=== PATIENT | female | born 1965 | race Caucasian/White ===

== ENCOUNTER 2016-07-27 14:42 | Outpatient (CLI) | payer BC ==
[2016-07-27] MEDS ORDERED: SODIUM CHLORIDE 0.9% 2,000 ML IV ONE (16:25)
[2016-07-27 16:33] VITALS: BMI 23.4
[2016-07-27 19:45] VITALS: BP 107/67; PULSE 85; RESP 18; TEMP 97
--- NOTE | 2016-08-14 17:16 | P.PN ---
Progress Note - Text DATE OF SERVICE: 07/27/2016 CHIEF COMPLAINT: Follow-up revision of gastric bypass. HISTORY OF PRESENT ILLNESS: Sherrie Lira is a 51-year-old female who is status post revision of her gastric bypass on 06/20/2016. She is over a month out. She had a gastrogastric fistula including severe gastroesophageal reflux disease and epigastric abdominal pain, which is now completely resolved. Her initial highest weight was 310 pounds for a 5-foot , 6-1/2-inch frame. [place] body weight is 154 pounds. Today she comes in weighing 167 pounds. Her prior weight before surgery was 164 pounds. She has lost another 16 pounds in one month. Percent excess weight loss is 104%. She has lost 163 pounds. Body mass index is reduced from 49.4 down to 23.5. Overall she reports new onset dizziness including blood pressure in the 80s. She reports poor oral intake. PHYSICAL EXAM: VITAL SIGNS: 98.5, 93, 89/60, 18; 5 feet 6-1/2 inches, 147 pounds, body mass index 23.5. GENERAL: Well-developed female in no acute distress. ABDOMEN: Soft, nontender. All incisions granulated. MUSCULOSKELETAL: No clubbing, cyanosis, or edema. HEENT: No sclera icterus. Extraocular movements grossly intact. Moist buccal mucosa. Head is atraumatic, normocephalic. Hears conversational speech. No nasal drainage. NECK: Supple without lymphadenopathy. No JV distention. CHEST: Non-labored respirations and equal bilateral excursions. CARDIOVASCULAR: Regular rate and rhythm. Palpable 2+ radial pulses. NEUROLOGIC: No focal or lateralizing signs. PSYCH: Appropriate affect. Alert and oriented to person, place and time. ASSESSMENT: 1. History of gastrogastric fistula. 2. History of Luciano-en-Y gastric bypass with complication, now resolved. 3. Body mass index reduced from 49.4 down to 23.5. 4. Correction of gastrogastric fistula. 5. Chronic lower back pain. 6. Chronic iron deficiency anemia. 7. History of chronic anticoagulant therapy. 8. History of morbid obesity, now resolved. 9. Prior history of elevated liver enzymes. 10. History of blood clotting disorder. 11. Protein malnutrition secondary to inadequate protein intake. 12. Dietary surveillance and counseling. 13. Epigastric abdominal pain. 14. Dizziness. 15. Hypotension. 16. Adverse reaction from medications. PLAN: 1. On review of her vital signs including clinical history of poor oral intake, I have recommended 2 L IV fluid bolus at least on 2 separate occasions. On repeat, her blood pressure did improve to 107/67. 2. Recommend no return to work until resolution of all nausea including dehydration and dizziness. 3. As she has new onset dizziness, recommend review of her medications especially from her Topamax and Prozac. 4. Recommend followup in approximately one week.
== END 2016-07-27 19:30 | disposition home or self-care (01) ==
LOC: BARWHC3 14:42
PROVIDERS: ATTEND Surgery Plastic and Reconstructive Surgery
DX: Z48.815 Encounter for surgical aftercare following surgery on the digestive system (principal); Z98.84 Bariatric surgery status; R55 Syncope and collapse; R42 Dizziness and giddiness; I10 Essential (primary) hypertension; T50.905A Adverse effect of unspecified drugs, medicaments and biological substances, initial encounter; Z68.23 Body mass index [BMI] 23.0-23.9, adult
CPT/HCPCS: 96360; 96361; 99211

== ENCOUNTER → 2016-08-08 | Outpatient (CLI) | payer BC ==
--- NOTE | 2016-08-08 12:26 | P.PN ---
Progress Note - Text To whom it may concern: Sherrie Lira is under my general surgery care. She may return to work without restrictions on 08/09/2016. Sincerely, Ansley Bustamante MD, FACS, FICS
[2016-08-08 12:50] VITALS: BP 126/69; PULSE 74; TEMP 98.3; BMI 23.1
[2016-08-08 13:27] LABS: CH 30.5; CHCM 32.8; HCT 44.7 % (34.0-46.0); HDW 2.38; HGB 14.4 gm/dL (11.4-16.0); MCH 30.1 pg (25.0-35.0); MCHC 32.3 g/dL (31.0-37.0); MCV 93.1 fL (80.0-100.0); Mean Platelet Volume 7.1; RDW 12.8 % (11.5-15.5)
[2016-08-08 13:30] LABS: INR 1.1 (<1.1); Partial Thromboplastin Time 23.9 sec (22.0-30.0); Prothrombin Time 11.2 sec (9.0-12.0)
[2016-08-08 13:50] LABS: ALT 72 U/L (9-52); AST 48 U/L (14-36); Alkaline Phosphatase 77 U/L (38-126); Anion Gap 11 mmol/L; Blood Urea Nitrogen 17 mg/dL (7-17); Calcium 9.2 mg/dL (8.4-10.2); Carbon Dioxide 24 mmol/L (22-30); Chloride 108 mmol/L (98-107); Cholesterol 154 mg/dL (<200); Glucose 86 mg/dL (74-99); HDL Cholesterol 67 mg/dL (40-60); Iron 71 ug/dL (37-170); Magnesium 2.1 mg/dL (1.6-2.3); Non-African American GFR(MDRD) >60 (>60 ml/min/1.73 sqM); Phosphorous 4.2 mg/dL (2.5-4.5); Potassium 4.2 mmol/L (3.5-5.1); Sodium 143 mmol/L (137-145); Total Bilirubin 0.4 mg/dL (0.2-1.3); Triglycerides 82 mg/dL (<150)
[2016-08-08 14:01] LABS: % Iron Saturation 31.4 % (20-50); Prealbumin 25 mg/dL (18-36); Total Iron Binding Capacity 226 ug/dL (265-497)
[2016-08-08 14:52] LABS: Vitamin B12 857 pg/mL (239-931)
[2016-08-08 23:51] LABS: Hemoglobin A1C 5.2 % (4.2-6.1)
--- NOTE | 2016-08-14 21:18 | P.PN ---
Progress Note - Text DATE OF SERVICE: 08/08/2016 CHIEF COMPLAINT: Status post revision of gastrojejunal anastomosis and gastrogastric fistula. HISTORY OF PRESENT ILLNESS: Sherrie Lira is a 51-year-old female who is status post revision of a gastrogastric fistula of her gastric bypass on 06/20/2016. She is now over 6 weeks out. Approximately 2 to 3 weeks ago [facility] with excruciating epigastric abdominal pain including intractable nausea, vomiting, diarrhea. She believes this is secondary to Carafate. After discontinuing her Carafate for the last 4 days her abdominal pain is resolved. She is tolerating diet. No reports of recurrent epigastric abdominal pain. No reports of gastroesophageal reflux disease. Overall, she has increased energy. She is tolerating her protein diet. Again no reports of fevers or chills. She has lost another 2 pounds in 3 weeks. BMI reduced from 49.4 to 23.1. PHYSICAL EXAM: VITAL SIGNS: 98.3, 74, 16, 126/69; 5 foot 6 and a half, 65.907 kg, 145 pounds. Body mass is 23.1. ABDOMEN: All wounds completely granulated. No palpable incisional hernias. GENERAL: Well-developed female in no acute distress. MUSCULOSKELETAL: No clubbing, cyanosis, or edema. HEENT: No sclera icterus. Extraocular movements grossly intact. Moist buccal mucosa. Head is atraumatic, normocephalic. Hears conversational speech. No nasal drainage. NECK: Supple without lymphadenopathy. No JV distention. CHEST: Non-labored respirations and equal bilateral excursions. CARDIOVASCULAR: Regular rate and rhythm. Palpable 2+ radial pulses. NEUROLOGIC: No focal or lateralizing signs. PSYCH: Appropriate affect. Alert and oriented to person, place and time. LABS: Pending. ASSESSMENT: 1. History of Luciano-en-Y gastric bypass with complication of gastrogastric fistula. 2. Prior history of epigastric abdominal pain, resolved. 3. Prior history of gastroesophageal reflux disease, resolved. 4. Status post revision of gastrojejunal anastomosis. 5. Intolerance to Carafate. 6. Personal history of gastrojejunal ulcer. 7. BMI reduced from 49.4 to 23.1. 8. Massive weight lost 165 pounds. PLAN: 1. Clinically, she is resolved her symptoms and Carafate has now been added as an adverse reaction for which she will avoid and place on her medical record. 2. She may to return to work without restrictions. 3. She was advised to continue with her dietary guidelines of over 70 grams of protein daily. Also recommend IV fluid hydration over 64 ounces daily. 4. Recommend obtaining a bariatric metabolic panel as she is over one month out from her procedure.
== END | disposition home or self-care (01) ==
LOC: BARWHC3 11:05
PROVIDERS: ATTEND Surgery Plastic and Reconstructive Surgery
DX: Z48.815 Encounter for surgical aftercare following surgery on the digestive system (principal); Z98.84 Bariatric surgery status; E66.01 Morbid (severe) obesity due to excess calories; E21.1 Secondary hyperparathyroidism, not elsewhere classified; E89.1 Postprocedural hypoinsulinemia; E44.0 Moderate protein-calorie malnutrition; E55.9 Vitamin D deficiency, unspecified; K74.1 Hepatic sclerosis; N19 Unspecified kidney failure; K50.90 Crohn's disease, unspecified, without complications; K95.89 Other complications of other bariatric procedure; K31.6 Fistula of stomach and duodenum; T47.1X5A Adverse effect of other antacids and anti-gastric-secretion drugs, initial encounter; Z88.8 Allergy status to other drugs, medicaments and biological substances; Z87.898 Personal history of other specified conditions
CPT/HCPCS: 80053; 80061; 82306; 82525; 82607; 82728; 82746; 83036; 83540; 83550; 83735; 83970; 84100; 84134; 84255; 84425; 84443; 84590; 84630; 85027; 85610; 85730; 99211

== ENCOUNTER 2016-09-29 08:58 | Day surgery (SDC) | payer BC ==
[2016-09-29 09:19] VITALS: BMI 21.7
[2016-09-29 10:43] LABS: ALT 67 U/L (9-52); AST 50 U/L (14-36); Alkaline Phosphatase 91 U/L (38-126); Anion Gap 7 mmol/L; Blood Urea Nitrogen 19 mg/dL (7-17); Calcium 9.3 mg/dL (8.4-10.2); Carbon Dioxide 25 mmol/L (22-30); Chloride 111 mmol/L (98-107); Cholesterol 150 mg/dL (<200); Glucose 87 mg/dL (74-99); HDL Cholesterol 73 mg/dL (40-60); Iron 71 ug/dL (37-170); Magnesium 2.1 mg/dL (1.6-2.3); Non-African American GFR(MDRD) >60 (>60 ml/min/1.73 sqM); Potassium 4.6 mmol/L (3.5-5.1); Sodium 143 mmol/L (137-145); Total Bilirubin 0.3 mg/dL (0.2-1.3); Total Protein 6.1 g/dL (6.3-8.2); Triglycerides 68 mg/dL (<150)
[2016-09-29 10:45] LABS: CH 30.6; CHCM 32.6; HCT 42.9 % (34.0-46.0); HDW 2.39; HGB 14.2 gm/dL (11.4-16.0); INR 1.1 (<1.1); MCH 31.2 pg (25.0-35.0); MCHC 33.1 g/dL (31.0-37.0); MCV 94.4 fL (80.0-100.0); Mean Platelet Volume 7.3; Partial Thromboplastin Time 23.3 sec (22.0-30.0); Prothrombin Time 11.1 sec (9.0-12.0); RBC 4.54 m/uL (3.80-5.40); RDW 13.2 % (11.5-15.5)
[2016-09-29 10:53] LABS: Prealbumin 21 mg/dL (18-36); Total Iron Binding Capacity 209 ug/dL (265-497)
[2016-09-29 11:52] LABS: Vitamin B12 874 pg/mL (239-931)
[2016-09-29] MEDS ORDERED: SODIUM CHLORIDE 0.9% 2,000 ML IV ONE (12:03)
--- NOTE | 2016-09-29 12:03 | P.GSHP ---
History of Present Illness H&P Date: 09/29/16 CHIEF COMPLAINT: Gastric stenosis with dysphagia and dehydration HISTORY OF PRESENT ILLNESS: The patient is a 51-year-old female with history of a gastric bypass revision. She reports 2 months of dysphagia consistent with gastric stenosis. She reports headaches and dehydration. Now she presents with dehydration and unable tolerate liquid diet. Urgent upper endoscopy is offered for treatment. PAST MEDICAL HISTORY: Please see list. PAST SURGICAL HISTORY: Please see list. MEDICATIONS: Please see list. ALLERGIES: Please see list. SOCIAL HISTORY: No illicit drug use FAMILY HISTORY: No reports of Crohn disease or ulcerative colitis. REVIEW OF ORGAN SYSTEMS: CONSTITUTIONAL: No reports of fevers or chills. GI: Denies any blood in stools or constipation. PHYSICAL EXAM: VITAL SIGNS: Stable GENERAL: Well-developed and pleasant in no acute distress. HEENT: No scleral icterus. Extraocular movements grossly intact. Moist buccal mucosa. NECK: Supple without lymphadenopathy. CHEST: Unlabored respirations. Equal bilateral excursions. CARDIOVASCULAR: Regular rate and rhythm. Distal 2+ pulses. ABDOMEN: Soft, nondistended. MUSCULOSKELETAL: No clubbing, cyanosis, or edema. ASSESSMENT: 1. Gastric stenosis. 2. Dysphagia. 3. Dehydration. PLAN: 1. Recommend proceeding with an upper endoscopy with balloon dilatation. 2. Immediate IV fluid hydration at least 2 L. 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, History of Any Multi-Drug Resistant Organisms: None Reported Past Surgical History: Adenoidectomy, Bariatric Surgery, Cholecystectomy, Hysterectomy, Orthopedic Surgery, Tonsillectomy Additional Past Surgical History / Comment(s): gastric bypass 05/2015, mary knee arthroscopygastric fistula repair 06-20-16 Past Anesthesia/Blood Transfusion Reactions: Motion Sickness, Postoperative Nausea & Vomiting (PONV) Past Psychological History: No Psychological Hx Reported Additional Psychological History / Comment(s): TAKES PROZAC FOR HOT FLASHES" Smoking Status: Former smoker Past Alcohol Use History: Rare Additional Past Alcohol Use History / Comment(s): STARTED SMOKING AT AGE 15 QUIT 199 SMKED 1PPD Past Drug Use History: None Reported - Past Family History Mother Family Medical History: Cancer Additional Family Medical History / Comment(s): uterine cancer Father Family Medical History: Hypertension Additional Family Medical History / Comment(s): heart issues Medications and Allergies Home Medications Medication Instructions Recorded Confirmed Type Baclofen [Lioresal] 20 mg PO HS 04/28/16 08/08/16 History Topiramate [Topamax] 50 mg PO HS 04/28/16 08/08/16 History FLUoxetine HCL [PROzac] 10 mg PO HS 06/15/16 08/08/16 History Rivaroxaban [Xarelto] 20 mg PO HS 06/30/16 08/08/16 History LORazepam [Ativan] 1 mg PO HS PRN 07/27/16 08/08/16 History Allergies Allergy/AdvReac Type Severity Reaction Status Date / Time bupropion HCl [From Zyban] Allergy Rash/Hives Verified 08/08/16 12:33 erythromycin base Allergy Rash/Hives Verified 08/08/16 12:33 [Erythromycin Base] Penicillins Allergy Rash/Hives, Verified 08/08/16 12:33 SHORTNESS OF BREATH sucralfate [From Carafate] Allergy Abdominal Verified 08/08/16 12:33 Pain Sulfa (Sulfonamide Allergy Rash/Hives, Verified 08/08/16 12:33 Antibiotics) SHORTNESS OF BREATH Carate AdvReac Abdominal Uncoded 08/08/16 12:33 Pain Surgical - Exam Vital Signs Temp Pulse Resp BP 98.2 F 88 18 130/63 09/29/16 09:14 09/29/16 09:14 09/29/16 09:14 09/29/16 09:14 Results - Labs 09/29/16 10:04 09/29/16 10:04 Abnormal Lab Results - Last 24 Hours (Table) 09/29/16 Range/Units 10:04 Chloride 111 H (98-107) mmol/L BUN 19 H (7-17) mg/dL TIBC 209 L (265-497) ug/dL AST 50 H (14-36) U/L ALT 67 H (9-52) U/L Total Protein 6.1 L (6.3-8.2) g/dL HDL Cholesterol 73 H (40-60) mg/dL Diabetes panel 09/29/16 Range/Units 10:04 Sodium 143 (137-145) mmol/L Potassium 4.6 (3.5-5.1) mmol/L Chloride 111 H (98-107) mmol/L Carbon Dioxide 25 (22-30) mmol/L BUN 19 H (7-17) mg/dL Creatinine 0.80 (0.52-1.04) mg/dL Glucose 87 (74-99) mg/dL Calcium 9.3 (8.4-10.2) mg/dL AST 50 H (14-36) U/L ALT 67 H (9-52) U/L Alkaline Phosphatase 91 (38-126) U/L Total Protein 6.1 L (6.3-8.2) g/dL Albumin 4.0 (3.5-5.0) g/dL Triglycerides 68 (<150) mg/dL HDL Cholesterol 73 H (40-60) mg/dL Thyroid panel 09/29/16 Range/Units 10:04 TSH 1.190 (0.465-4.680) mIU/L Calcium panel 09/29/16 Range/Units 10:04 Calcium 9.3 (8.4-10.2) mg/dL Phosphorus 4.0 (2.5-4.5) mg/dL Albumin 4.0 (3.5-5.0) g/dL Pituitary panel 09/29/16 Range/Units 10:04 Sodium 143 (137-145) mmol/L Potassium 4.6 (3.5-5.1) mmol/L Chloride 111 H (98-107) mmol/L Carbon Dioxide 25 (22-30) mmol/L BUN 19 H (7-17) mg/dL Creatinine 0.80 (0.52-1.04) mg/dL Glucose 87 (74-99) mg/dL Calcium 9.3 (8.4-10.2) mg/dL TSH 1.190 (0.465-4.680) mIU/L Adrenal panel 09/29/16 Range/Units 10:04 Sodium 143 (137-145) mmol/L Potassium 4.6 (3.5-5.1) mmol/L Chloride 111 H (98-107) mmol/L Carbon Dioxide 25 (22-30) mmol/L BUN 19 H (7-17) mg/dL Creatinine 0.80 (0.52-1.04) mg/dL Glucose 87 (74-99) mg/dL Calcium 9.3 (8.4-10.2) mg/dL Total Bilirubin 0.3 (0.2-1.3) mg/dL AST 50 H (14-36) U/L ALT 67 H (9-52) U/L Alkaline Phosphatase 91 (38-126) U/L Total Protein 6.1 L (6.3-8.2) g/dL Albumin 4.0 (3.5-5.0) g/dL
[2016-09-29 12:26] VITALS: RESP 16; TEMP 97
[2016-09-29] MEDS ORDERED: LACTATED RINGERS 1,000 ML IV ONE (12:34)
[2016-09-29] MEDS ORDERED: LIDOCAINE 1% 20 ML VIAL (10MG/ML) FOR IV START INTRADERMA ONE (12:34)
[2016-09-29] MEDS ORDERED: MIDAZOLAM 2 MG/2 ML VIAL ONE (12:47)
[2016-09-29] MEDS ORDERED: LIDOCAINE 1% INJ 10MG/ML (20 ML MDV) ONE (12:47)
[2016-09-29] MEDS ORDERED: PROPOFOL 10 MG/ML 20 ML VIAL IV ONE (12:47)
--- NOTE | 2016-09-29 13:23 | P.PCN ---
Date of Procedure: 09/29/16 Description of Procedure: PREOPERATIVE DIAGNOSIS: Dysphagia. Gastric stenosis. Nausea with vomiting. Dehydration. POSTOPERATIVE DIAGNOSIS: Dysphagia. Gastric stenosis. Nausea with vomiting. Dehydration. Gastrojejunal stricture without chronic ulcer without perforation OPERATION: Esophagogastrojejunoscopy with balloon dilatation from 8 to 16.5 mm. SURGEON: Ansley Bustamante MD ANESTHESIA: MAC. INDICATIONS: The patient is a 51-year-old female who presents with a history of dysphagia, gastric bypass including new-onset nausea and vomiting. Benefits and risks of the procedure were described. Informed consent was obtained. DESCRIPTION: The patient was brought into the endoscopy suite and laid in the left lateral decubitus position. After a timeout was confirmed, the procedure was initiated. An Olympus gastroscope was passed along the posterior oropharynx down to the distal esophagus where the squamocolumnar junction was unremarkable. The gastric pouch was entered. A gastrojejunal stricture of 8 mm was found as the adult gastroscope was 9.5 mm in size. A [employer] balloon dilator was placed through the scope starting with 8-mm balloon. Final insufflation up to 16.5 mm was performed with a total of 2 minutes. The scope was advanced up to 60 cm from the incisors into the Luciano limb. The mucosa of the gastrojejunal anastomosis was intact. However chronic gastrojejunal marginal ulcer was encountered. No full-thickness injury was encountered. The GI tract was desufflated. The patient tolerated the procedure well. FINDINGS: Stricture of approximately 8 mm encountered. No gastrojejunal ulceration encountered. Successful balloon dilatation to 16.5 mm. Gastric pouch 3 cm. RECOMMENDATIONS: Upper endoscopy as needed. Plan - Discharge Summary Discharge Medication List Baclofen [Lioresal] 20 mg PO HS 04/28/16 [History] Topiramate [Topamax] 50 mg PO HS 04/28/16 [History] FLUoxetine HCL [PROzac] 10 mg PO HS 06/15/16 [History] Omeprazole 40 mg PO DAILY #90 capsule. 06/22/16 [Rx] Rivaroxaban [Xarelto] 20 mg PO HS 06/30/16 [History] LORazepam [Ativan] 1 mg PO HS PRN 07/27/16 [History] Cyclobenzaprine [Flexeril] 1 tab PO Q12HR 09/29/16 [History] QUEtiapine FUMARATE [SEROquel] 25 mg PO QID PRN 09/29/16 [History]
[2016-09-29 13:50] LABS: Hemoglobin A1C 5.7 % (4.2-6.1)
[2016-09-29 14:24] VITALS: BP 127/79; PULSE 63
[2016-10-05 15:37] LABS: Selenium 137 mcg/L (63-160)
== END 2016-09-29 14:50 | disposition home or self-care (01) ==
LOC: ORWHC2ENDO 08:58 → BARWHC3 08:58 → EDSTATUS 09:00 → BARWHC3 14:50
PROVIDERS: ATTEND Surgery Plastic and Reconstructive Surgery
DX: K31.89 Other diseases of stomach and duodenum (principal); K56.69 Other intestinal obstruction; I10 Essential (primary) hypertension; G43.909 Migraine, unspecified, not intractable, without status migrainosus; I82.409 Acute embolism and thrombosis of unspecified deep veins of unspecified lower extremity; K21.9 Gastro-esophageal reflux disease without esophagitis; M19.90 Unspecified osteoarthritis, unspecified site; Z88.0 Allergy status to penicillin; Z88.1 Allergy status to other antibiotic agents; Z88.2 Allergy status to sulfonamides; Z88.8 Allergy status to other drugs, medicaments and biological substances; Z79.01 Long term (current) use of anticoagulants; Z79.899 Other long term (current) drug therapy; Z87.891 Personal history of nicotine dependence; Z82.49 Family history of ischemic heart disease and other diseases of the circulatory system; Z98.84 Bariatric surgery status
CPT/HCPCS: 84255; 84134; 84425; 80061; 80053; 82607; 82728; 83036; 82525; 82746; 83540; 83550; 83735; 84100; 84443; 84590; 84630; 85027; 85610; 85730; 82306; 83970; 99211; 36415; 43245; J2250; J2001; J2704; C1726 ×2; 43249

== ENCOUNTER → 2016-10-06 | Outpatient (CLI) | payer BC ==
[2016-10-06 11:40] VITALS: BP 105/71; PULSE 87; RESP 15; TEMP 97.5; BMI 21.8
--- NOTE | 2016-11-03 21:47 | P.PN ---
Progress Note - Text DATE OF SERVICE: 10/06/2016 CHIEF COMPLAINT: Abdominal pain. HISTORY OF PRESENT ILLNESS: Sherrie Lira is a 51-year-old female status post revision of Luciano-en-Y gastric bypass on 06/20/2016. She is now more than 3 months out. Her highest weight since her initial operation 4 years ago is 310 pounds. [place] body weight for her 5 foot frame is 154 pounds. She comes in weighing 137 pounds. She has lost 173 pounds. Body mass index is reduced from 49.4 down to 21.8. Total BMI point reduction is 27.6. Percent excess weight loss is 111%. She reports abdominal pain is much improved. No reports of gastroesophageal reflux disease. PAST MEDICAL HISTORY: 1. History of morbid obesity. 2. Gastroesophageal reflux disease, now resolved. 3. Dyslipidemia, now resolved. 4. Osteoarthritis, now improved. 5. Prior history of DVTs. 6. Clotting disorder. PAST SURGICAL HISTORY: 1. Luciano-en-Y gastric bypass. 2. Upper endoscopy. 3. Cholecystectomy. 4. Hysterectomy. 5. Orthopedic procedure. 6. Tubal ligation. 7. D&C. 8. Tonsillectomy. 9. Adenoidectomy. 10. Chronic back injections. 11. Upper endoscopy. 12. Revision of Luciano-en-Y gastric bypass. MEDICATIONS: 1. Tumeric. 2. Topamax. 3. Xarelto. 4. Multivitamin. 5. Iron infusion. 6. [place]. 7. Sarafen. 8. Flexeril. 9. Vitamin B12. 10. Cranberry. 11. Vitamin D. 12. Calcium citrate. 13. Biotin. 14. Baclofen. ALLERGIES: 1. ERYTHROMYCIN. 2. PENICILLIN. 3. SULFA. SOCIAL HISTORY: Remote tobacco user. FAMILY HISTORY: Pertinent for morbid obesity. REVIEW OF SYSTEMS: CONSTITUTIONAL: Her highest weight since her initial operation 4 years ago is 310 pounds. [place] body weight for her 5 foot frame is 154 pounds. She comes in weighing 137 pounds. She has lost 173 pounds. Body mass index is reduced from 49.4 down to 21.8. Total BMI point reduction is 27.6. Percent excess weight loss is 111%. GASTROINTESTINAL: Gastroesophageal reflux disease resolved. MUSCULOSKELETAL: Severe chronic lower back pain requiring multiple injections. HEENT: Denies any trouble with vision or nosebleeds. No difficulty swallowing. Has hearing loss. LYMPHATIC: The patient denies any lumps and bumps around the neck. ENDOCRINE: Denies any thyroid disorders. Denies any blood sugar glucose intolerance. RESPIRATORY: Denies pneumonia. Denies any troubles with breathing or dyspnea on exertion. CARDIOVASCULAR: Denies any chest pain, palpitations, or recent heart attacks. GENITOURINARY: Denies any blood in urine or increased urinary frequency. NEUROLOGIC: Denies any numbness or tingling along the distal extremities. No seizure disorders or headaches. PSYCHIATRIC: Had depression or suidical ideation. PHYSICAL EXAM: VITAL SIGNS: 97.5, 87, 15, 105/71, 5 foot 6-1/2, 137 pounds. Body mass index 21.8. ABDOMEN: Soft, nontender, nondistended. No palpable incisional hernias. MUSCULOSKELETAL: No clubbing, cyanosis, or edema. GENERAL: Well-developed female in no acute distress. HEENT: No sclera icterus. Extraocular movements grossly intact. Moist buccal mucosa. Head is atraumatic, normocephalic. Hears conversational speech. No nasal drainage. NECK: Supple without lymphadenopathy. No JV distention. CHEST: Non-labored respirations and equal bilateral excursions. CARDIOVASCULAR: Regular rate and rhythm. Palpable 2+ radial pulses. NEUROLOGIC: No focal or lateralizing signs. PSYCH: Appropriate affect. Alert and oriented to person, place and time. ASSESSMENT: 1. Status post massive weight loss of 173. 2. Normal BMI, 21.8. 3. Body mass index reduced from 49.4 down to 21.8. 4. Status post Luciano-en-Y gastric bypass. 5. Chronic lower back pain. 6. Chronic iron deficiency anemia. 7. History of chronic anticoagulant therapy. 8. History of morbid obesity, now resolved. 9. Prior history of elevated liver enzymes. 10. History of blood clotting disorder. 11. Protein malnutrition secondary to inadequate protein intake resolved. 12. Dietary surveillance and counseling. 13. Gastrogastric fistula, resolved. 14. Epigastric abdominal pain, resolved. 15. Zinc excess. 16. Gastrojejunal stricture, resolved. LABS: Chloride was elevated at 111. BUN was elevated at 19. Total iron-binding capacity was low at 209. AST was elevated at 50. ALT elevated at 67. Total protein was low at 6.1. HDL was elevated at 73. Glucose moderately elevated. PLAN: 1. I recommend bariatric panel. 2. I have asked her to follow up sooner should she have any further concerns. 3. She may return to work. 4. Recommend curtailing her zinc intake. 5. Additionally, recommend goal protein intake of over 70 grams daily. 6. She had findings consistent with gastrojejunal stricture for which her symptoms have improved. 7. Recommended follow-up in approximately 3 months postop, otherwise December 2016.
== END | disposition home or self-care (01) ==
LOC: BARWHC3 10:14
PROVIDERS: ATTEND Surgery Plastic and Reconstructive Surgery
DX: Z48.815 Encounter for surgical aftercare following surgery on the digestive system (principal); Z68.21 Body mass index [BMI] 21.0-21.9, adult; Z98.84 Bariatric surgery status; G89.29 Other chronic pain; M54.5 Low back pain; D50.8 Other iron deficiency anemias; Z79.01 Long term (current) use of anticoagulants; D68.9 Coagulation defect, unspecified; R79.89 Other specified abnormal findings of blood chemistry; Z88.0 Allergy status to penicillin; Z88.1 Allergy status to other antibiotic agents; Z88.2 Allergy status to sulfonamides; Z79.899 Other long term (current) drug therapy; Z72.0 Tobacco use; M19.90 Unspecified osteoarthritis, unspecified site; Z86.718 Personal history of other venous thrombosis and embolism
CPT/HCPCS: 99211

== ENCOUNTER → 2017-03-10 | Outpatient (CLI) | payer BC ==
[2017-03-10 13:08] LABS: Basophils # (A) 0.1 k/uL (0-0.2); Basophils % (A) 2 %; CH 30.6; CHCM 32.1; Eosinophils # (A) 0.5 k/uL (0-0.7); Eosinophils % (A) 10 %; HCT 43.3 % (34.0-46.0); HDW 2.25; HGB 14.2 gm/dL (11.4-16.0); Luc % (Auto) 2; Lymphocytes # (A) 1.8 k/uL (1.0-4.8); Lymphocytes % (A) 36 %; MCH 31.3 pg (25.0-35.0); MCHC 32.7 g/dL (31.0-37.0); MCV 95.7 fL (80.0-100.0); Mean Platelet Volume 7.3; Monocytes # (A) 0.2 k/uL (0-1.0); Monocytes % (A) 4 %; Neutrophils # (A) 2.3 k/uL (1.3-7.7); Neutrophils % (A) 46 %; RBC 4.53 m/uL (3.80-5.40); RDW 12.7 % (11.5-15.5); WBC (Perox) 5.28
== END | disposition home or self-care (01) ==
LOC: LABWHC1 12:18
PROVIDERS: ATTEND Orthopaedic Surgery
DX: Z01.810 Encounter for preprocedural cardiovascular examination (principal); Z01.812 Encounter for preprocedural laboratory examination
CPT/HCPCS: 85025

== ENCOUNTER 2017-03-21 07:56 | Observation (INO) | payer BC ==
[2017-03-10 11:45] VITALS: BMI 21.6
[~2017-03-21 07:56] MED LIST: DEXAMETHASONE SOD PHOSPHATE 10 MG/ML 1 ML VIAL IV ONE; HYDROmorphone 1 MG/ML 1 ML SYRINGE IVP PRN; LIDOCAINE 1% 20 ML VIAL (10MG/ML) FOR IV START INTRADERMA PRN; ONDANSETRON 4 MG/2 ML VIAL IVP ONE; SCOPOLAMINE 1.5MG/72HR PATCH TRANSDERM ONE; ceFAZolin 2 GM in SODIUM CHLORIDE 0.9% 100 ML IVPB ONE
[2017-03-21] MEDS: LACTATED RINGERS 1,000 ML IV SCH ×2 (08:21→12:46)
[2017-03-21] MEDS ORDERED: SCOPOLAMINE 1.5MG/72HR PATCH TRANSDERM ONE (08:22)
[2017-03-21] MEDS ORDERED: MIDAZOLAM 2 MG/2 ML VIAL IVP ONE (08:42)
[2017-03-21] MEDS ORDERED: fentaNYL (PF) 50 MCG/ML 2 ML AMP IVP ONE (08:42)
[2017-03-21] MEDS ORDERED: ePHEDrine SULFATE/0.9% NACL/PF 50 MG/5 ML SYRINGE IV ONE (09:52)
[2017-03-21] MEDS ORDERED: SUCCINYLCHOLINE CHLORIDE 100 MG/5 ML SYR IV ONE (09:52)
[2017-03-21] MEDS ORDERED: MIDAZOLAM 2 MG/2 ML VIAL ONE (09:52)
[2017-03-21] MEDS ORDERED: LIDOCAINE 1% INJ 10MG/ML (20 ML MDV) ONE (09:52)
[2017-03-21] MEDS ORDERED: PROPOFOL 10 MG/ML 20 ML VIAL IV ONE (09:52)
[2017-03-21] MEDS ORDERED: PHENYLEPHRINE-0.9% NACL SYG 1 MG/10 ML SYRINGE ONE (09:52)
[2017-03-21] MEDS ORDERED: SODIUM CHLORIDE 0.9% 100 ML with CLINDAMYCIN 600 MG IV ONE ×2 (10:17)
[2017-03-21] MEDS ORDERED: CLINDAMYCIN 600 MG in SODIUM CHLORIDE 0.9% 1,000 ML IRRIGATION ONE (10:30)
[2017-03-21] MEDS ORDERED: LACTATED RINGERS 1,000 ML IV ONE ×2 (10:33)
[2017-03-21] MEDS ORDERED: SENNOSIDES-DOCUSATE SODIUM 1 EACH TAB PO PRN (11:31)
[2017-03-21] MEDS ORDERED: HYDROmorphone 1 MG/ML 1 ML SYRINGE IVP PRN ×2 (11:31)
[2017-03-21] MEDS ORDERED: METOCLOPRAMIDE 5 MG/ML 2 ML VIAL IVP PRN (11:31)
[2017-03-21] MEDS ORDERED: hydrOXYzine PAMOATE 25 MG CAP PO PRN (11:31)
[2017-03-21] MEDS ORDERED: TEMAZEPAM 15 MG CAP PO PRN (11:31)
[2017-03-21] MEDS ORDERED: ONDANSETRON 4 MG/2 ML VIAL IVP PRN (11:31)
[2017-03-21] MEDS ORDERED: diphenhydrAMINE 25 MG CAP PO PRN (11:31)
[2017-03-21] MEDS ORDERED: HYDROcodone/APAP 5-325MG 1 EACH TAB PO PRN (11:31)
[2017-03-21] MEDS ORDERED: PROMETHAZINE INJ 25 MG/ML 1 ML VIAL IVPB ONE (11:33)
[2017-03-21] MEDS ORDERED: KETOROLAC 30 MG/ML 1 ML VIAL IVP ONE (12:04)
[2017-03-21] MEDS: HYDROmorphone 1 MG/ML 1 ML SYRINGE IVP PRN ×4 (12:59→23:41)
[2017-03-21] MEDS ORDERED: QUEtiapine 25 MG TAB PO PRN (13:09)
[2017-03-21] MEDS: HYDROcodone/APAP 5-325MG 1 EACH TAB PO PRN ×2 (14:43→21:06)
--- NOTE | 2017-03-21 15:23 | CONS ---
CONSULTATION DATE OF CONSULTATION: 03/21/2017 REASON FOR CONSULTATION: Medical management requested by Dr. Barrios. CONSULTATION: This is a pleasant 51-year-old patient of Dr. Morris, who has undergone left shoulder surgery. Some pain is present. Patient got a nerve block in the distal arms, still numb. Patient's chronic stable medical conditions include osteoarthritis, clotting disorder. chronic insomnia. Patient has got family members at the bedside. No nausea, vomiting. No cardiac history. REVIEW OF SYSTEMS: CONSTITUTIONAL: None HEENT: None. RESPIRATORY: None. CARDIOVASCULAR: None. GASTROINTESTINAL: Heartburn. GENITOURINARY: None. MUSCULOSKELETAL: Aches and pains in multiple joints. HEMATOLOGIC: None. DERMATOLOGIC: None. LYMPHATICS: None. PSYCHIATRY: Anxiety. NEUROLOGICAL: Chronic insomnia. PAST MEDICAL HISTORY: DVT, osteoarthritis, migraines, prothrombin 202, 108, clotting disorder, peptic ulcer disease. PAST SURGICAL HISTORY: Adenoidectomy, bariatric surgery, cholecystectomy, hysterectomy, tonsillectomy, gastric bypass, bilateral knee arthroscopy, gastric fistula repair. SOCIAL HISTORY: The patient smoked a pack a day from age 15 until December 1989, , alcohol rarely. FAMILY HISTORY: Uterine cancer. HOME MEDICATIONS: Topamax 50 mg q.h.s., Seroquel 25 mg p.o. q.i.d. p.r.n., omeprazole 40 mg q.h.s., Lexapro 5 mg q.h.s., Flexeril 10 mg p.o. q.12, baclofen 20 mg q.h.s., Xarelto 20 mg q.h.s. ALLERGIES: ZYBAN, ERYTHROMYCIN, PENICILLIN, CARAFATE, SULFA. PHYSICAL EXAMINATION: Temperature 97.9, pulse 62, respiratory rate 18, blood pressure 104/58, pulse ox 100% room air. GENERAL APPEARANCE: Sitting up, comfortable. EYES: Pupils equal, conjunctivae normal. HEENT: Oral cavity normal. Neck, JVD not raised. Mass not palpable. RESPIRATORY EFFORT: Normal. LUNGS: Clear. CARDIOVASCULAR: First and second sounds are normal. No edema. ABDOMEN: Soft, nontender. Liver and spleen are palpable. Lymphatic: No lymph node palpable in neck or axillae. PSYCHIATRIC: Alert and oriented x3. Mood and affect normal. EXTREMITIES: Left arm in a sling. Left distal arm, hand is numb. MUSCULOSKELETAL: No evidence of osteoarthritis, especially in the hands. INVESTIGATIONS: No blood work today. ASSESSMENT: 1. Acromioplasty excision of distal clavicle and left shoulder rotator cuff repair. 2. Primary osteoarthritis of multiple joints bilateral. 3. Chronic insomnia, idiopathic. 4. Peptic ulcer disease. 5. 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 PLAN: Resume patient's home medications. Patient is on Xarelto for DVT prophylaxis. Care was discussed with the patient. Thank you, Dr. Barrios. MMOLIVIAL / MARCO AN: [id number] /
[2017-03-21] MEDS: CLINDAMYCIN 900 MG in DEXTROSE 5% IN WATER 50 ML IVPB SCH ×2 (18:00)
[2017-03-21] MEDS ORDERED: BACLOFEN 10 MG TAB PO SCH (21:00)
[2017-03-21] MEDS ORDERED: ESCITALOPRAM 5 MG TAB PO SCH (21:00)
[2017-03-21] MEDS ORDERED: RIVAROXABAN 10 MG TAB PO SCH (21:00)
[2017-03-21] MEDS ORDERED: PANTOPRAZOLE 40 MG TABLET PO SCH (21:00)
[2017-03-21] MEDS: CYCLOBENZAPRINE 10 MG TAB PO SCH (21:03)
[2017-03-22] MEDS: CLINDAMYCIN 900 MG in DEXTROSE 5% IN WATER 50 ML IVPB SCH ×2 (02:07)
[2017-03-22] MEDS: HYDROmorphone 1 MG/ML 1 ML SYRINGE IVP PRN ×2 (02:58→07:10)
[2017-03-22] MEDS: HYDROcodone/APAP 5-325MG 1 EACH TAB PO PRN ×2 (03:06→09:22)
[2017-03-22] MEDS: LACTATED RINGERS 1,000 ML IV SCH ×2 (03:53→08:03)
[2017-03-22 07:54] VITALS: BP 104/58; PULSE 80; RESP 16; TEMP 98
[2017-03-22] MEDS: CYCLOBENZAPRINE 10 MG TAB PO SCH (08:04)
--- NOTE | 2017-03-22 16:50 | P.PN ---
Progress Note - Text DATE OF SERVICE: 03/22/2017 PRESENTING COMPLAINT: Shoulder pain HISTORY OF PRESENT ILLNESS: 51-year-old female who is is status post left shoulder surgery with Dr. Barrios, we 've been consulted for medical management. INTERVAL HISTORY: 03/22/2017: Patient sitting up in the bed has no acute complaints at this time other than her shoulder hurting. Pain management is adequate at still has some residual pain. REVIEW OF SYSTEMS: Done for constitutional ,cardiovascular, GI, pulmonary, musculoskeletal with relevant findings as above. CURRENT MEDICATIONS [place], baclofen, Flexeril, Benadryl, Lexapro, Protonix, Seroquel. PHYSICAL EXAM VITAL SIGNS: Temperature 98.0, pulse 80, blood pressure 104/58, respirations 16, oxygen saturation 97% on room air. GENERAL APPEARANCE: Sitting up in bed, not in distress. EYES: Pupils equal. Conjunctiva normal. NECK: JVD not raised. Mass not palpable. RESPIRATORY: Respiratory effort normal. Lungs clear to auscultation. CARDIOVASCULAR: First and second sounds normal. No edema. ABDOMEN: Soft. Liver and spleen not palpable. No tenderness. No mass palpable. PSYCHIATRY: Alert and oriented x3. Mood and affect normal. MUSCULOSKELETAL: Left shoulder and arm in a sling, left distal arm and hand numbness has dissipated INVESTIGATIONS: None new ASSESSMENT: -Acromioplasty excision of distal clavicle and left shoulder rotator cuff repair -Primary osteoarthritis of multiple joints bilateral -Chronic insomnia, idiopathic. -Peptic ulcer disease. 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 Plan of care discussed with the patient the bedside she is in agreement. CHIEF ADMINISTRATIVE OFFICER statement: Patient was seen and examined by nurse practitioner Arianna Sabillon and all elements of the case discussed with attending Dr. Reed
--- NOTE | 2017-03-22 19:57 | P.DS ---
Providers Date of admission: 03/21/17 21:15 Expected date of discharge: 03/22/17 Attending physician: Yasmany Barrios Consults: 03/21/17 11:31 Consult Physician Routine Consulting Provider: Dm Morris Consult Reason/Comments: post op medical management Do you want consulting provider notified?: Yes Primary care physician: Dm Morris - Discharge Diagnosis(es) (1) Rotator cuff tear Patient is a 51 yo female that was admitted to the OR on 03/21/2017 to undergo left rotator cuff repair, acromioplasty and distal clavicle excsion. She has failed conservative measures as an outpatient and desired to proceed with elective surgery after giving informed consent. She underwent the above procedure which tolerated well without complication. Her post operative hospital course was without complication. On day of discharge she is afebrile, VSS, wound benign, labs within acceptable ranges, tolerating po diet and meds, voiding without difficulty, positive flatus, denying new complaints, NVI, calves soft and nontender, abdomen SNT. ROS is negative for fever, chills, chest pain, SOB, N/V, dizziness, headaches, slurred speech, numbness, tingling, calf pain or abdominal pain. Status: Acute Priority: Medium Procedures: Left RCR, distal clavicle excision and acromioplasty Patient Condition at Discharge: Good Plan - Discharge Summary New Discharge Prescriptions: New Docusate [Colace] 100 mg PO BID #60 capsule HYDROcodone/APAP 7.5-325MG [[place] 7.5-325] 1 - 2 tab PO Q6HR PRN #60 tab PRN Reason: Pain No Action Topiramate [Topamax] 50 mg PO HS Baclofen [Lioresal] 20 mg PO HS Rivaroxaban [Xarelto] 20 mg PO HS QUEtiapine FUMARATE [SEROquel] 25 mg PO QID PRN PRN Reason: Anxiety Cyclobenzaprine [Flexeril] 10 mg PO Q12HR Omeprazole 40 mg PO HS Escitalopram [Lexapro] 5 mg PO HS Enoxaparin [Lovenox] 40 mg SQ DAILY Discharge Medication List Baclofen [Lioresal] 20 mg PO HS 04/28/16 [History] Topiramate [Topamax] 50 mg PO HS 04/28/16 [History] Rivaroxaban [Xarelto] 20 mg PO HS 06/30/16 [History] Cyclobenzaprine [Flexeril] 10 mg PO Q12HR 09/29/16 [History] QUEtiapine FUMARATE [SEROquel] 25 mg PO QID PRN 09/29/16 [History] Escitalopram [Lexapro] 5 mg PO HS 03/10/17 [History] Omeprazole 40 mg PO HS 03/10/17 [History] Enoxaparin [Lovenox] 40 mg SQ DAILY 03/21/17 [History] Docusate [Colace] 100 mg PO BID #60 capsule 03/22/17 [Rx] HYDROcodone/APAP 7.5-325MG [[place] 7.5-325] 1 - 2 tab PO Q6HR PRN #60 tab [Rx] Follow up Appointment(s)/Referral(s): Yasmany Barrios DO [Doctor of Osteopathic Medicine] - 2 Weeks Activity/Diet/Wound Care/Special Instructions: Maintain sling Keep wound clean and dry May shower in 72 hours Take meds as directed Follow-up with Dr. Barrios in office Nonweightbearing upper extremity Discharge Disposition: HOME SELF-CARE
--- NOTE | 2017-03-27 20:05 | OP ---
OPERATIVE REPORT DATE OF SURGERY: 03/21/17 SURGEON: CASTILLO JAMES DO SIDER: GRACE MORALES PA-C PREOPERATIVE DIAGNOSIS: Chronic impingement left rotator cuff. POSTPROCEDURE DIAGNOSIS: Complete tear of a supra and infraspinatus tendon of the left rotator cuff. PROCEDURE PERFORMED: Resection of distal clavicle, decompression acromioplasty, rotator cuff repair utilizing two Arthrex 5.5 bio absorbable anchors. PROCEDURE IN DETAIL: The patient was taken to the operative suite and placed in supine position. Regional block anesthesia was performed by the Department of Anesthesia and carried down to the area. The patient was placed in beach chair position, padded and secured. Betadine prep was carried out of the left shoulder. Sterile drapes were applied in the usual manner. An anterolateral approach incision was developed over the anterior lateral of the acromion. Sharp dissection was carried out through the subcutaneous tissue. The superior acromioclavicular ligament is identified and dissected. The distal 1 cm of the clavicle was excised with a bone saw. The anterior deltoid was released into the anterolateral border. The coracoacromial ligament was released. An anterolateral decompression acromioplasty was performed. With the acromion was then shaped with a bone saw and bone rasp. Complete tear of the superior tendons noted. The acromial undersurface was smoothed with a rongeur. 5.5 Arthrex bioabsorbable anchor was inserted and repair of the rotator cuff was performed. The area was irrigated with antibiotic solution. The deltoid was approximated back into the acromion with #1 Ethibond suture. The deep fascia with #1 Vicryl suture in a running fashion. The subcutaneous tissue approximated with 2-0 Vicryl suture in an interrupted fashion. The skin approximated with 3-0 Quill suture in a subcuticular fashion. The incision was sealed with Dermabond. Sterile dressing was applied. The patient was placed in an abductor pillow and splint and transferred to the recovery room in satisfactory postop condition. GROSS PATHOLOGY: There is evidence of tear of the supra and infraspinatus tendon of the left shoulder with associated problems with rotator cuff impingement. MMODL / IJN: [id number] / SHASHI
== END 2017-03-22 09:55 | disposition home or self-care (01) ==
LOC: OR 07:56 → 3OBS 11:33 → OR 21:17
PROVIDERS: ADMIT Orthopaedic Surgery; ATTEND Orthopaedic Surgery
DX: M75.122 Complete rotator cuff tear or rupture of left shoulder, not specified as traumatic (principal); I10 Essential (primary) hypertension; M75.02 Adhesive capsulitis of left shoulder; E78.2 Mixed hyperlipidemia; Z79.899 Other long term (current) drug therapy; Z88.0 Allergy status to penicillin; Z79.01 Long term (current) use of anticoagulants; Z86.718 Personal history of other venous thrombosis and embolism; Z88.3 Allergy status to other anti-infective agents; Z88.2 Allergy status to sulfonamides; Z88.8 Allergy status to other drugs, medicaments and biological substances; Z98.84 Bariatric surgery status; Z87.891 Personal history of nicotine dependence; E05.90 Thyrotoxicosis, unspecified without thyrotoxic crisis or storm; E66.9 Obesity, unspecified; F41.9 Anxiety disorder, unspecified; G43.009 Migraine without aura, not intractable, without status migrainosus; D68.59 Other primary thrombophilia; G89.29 Other chronic pain; F40.240 Claustrophobia; K90.9 Intestinal malabsorption, unspecified; M19.90 Unspecified osteoarthritis, unspecified site; F32.1 Major depressive disorder, single episode, moderate
CPT/HCPCS: 23412; 23130; 23120; G0378 ×2; C1713; J2250; J1100; J2550; J2405; J2001; J3010; J1885; J1170 ×2; J2370; J0330; J2704

== ENCOUNTER → 2017-09-12 | Outpatient (CLI) | payer BC ==
[2017-09-12 17:28] LABS: HCT 41.9 % (34.0-46.0); HGB 13.4 gm/dL (11.4-16.0); MCH 29.8 pg (25.0-35.0); MCHC 32.1 g/dL (31.0-37.0); MCV 92.8 fL (80.0-100.0); Mean Platelet Volume 7.4; Platelet Count 270 k/uL (150-450); RBC 4.51 m/uL (3.80-5.40); RDW 12.8 % (11.5-15.5); WBC 5.6 k/uL (3.8-10.6)
[2017-09-12 17:39] LABS: Partial Thromboplastin Time 21.8 sec (22.0-30.0); Prothrombin Time 9.8 sec (9.0-12.0)
[2017-09-12 17:55] LABS: ALT 39 U/L (9-52); AST 34 U/L (14-36); Albumin 3.9 g/dL (3.5-5.0); Alkaline Phosphatase 88 U/L (38-126); Anion Gap 8 mmol/L; Blood Urea Nitrogen 16 mg/dL (7-17); Calcium 9.2 mg/dL (8.4-10.2); Carbon Dioxide 26 mmol/L (22-30); Chloride 108 mmol/L (98-107); Cholesterol 172 mg/dL (<200); Glucose 94 mg/dL (74-99); HDL Cholesterol 70 mg/dL (40-60); LDL Cholesterol,Calculated 83 mg/dL (0-99); Magnesium 2.3 mg/dL (1.6-2.3); Phosphorus 3.5 mg/dL (2.5-4.5); Sodium 142 mmol/L (137-145); Total Bilirubin 0.1 mg/dL (0.2-1.3); Triglycerides 94 mg/dL (<150)
[2017-09-13 00:15] LABS: Parathyroid Hormone Intact 44.5 pg/mL (14.0-72.0)
[2017-09-13 00:51] LABS: Iron Saturation 25.1 (12.00-45.00)
[2017-09-13 00:59] LABS: Vitamin D 25 Hydroxy 67.5 ng/mL (30.0-100.0)
[2017-09-13 01:05] LABS: Folate, Serum 19.6 ng/mL
[2017-09-13 09:14] LABS: Hemoglobin A1C 5.3 % (4.0-6.0)
[2017-09-13 11:50] LABS: Vitamin B1 38 ug/L (38-122)
[2017-09-13 12:07] LABS: Zinc, Serum 89 ug/dL (60-130)
[2017-09-13 13:27] LABS: Vitamin A 80 ug/dL (38-106)
[2017-09-15 12:09] LABS: Selenium 90 mcg/L (63-160)
== END | disposition home or self-care (01) ==
LOC: LABWHC1 16:52
PROVIDERS: ATTEND Surgery Plastic and Reconstructive Surgery
DX: E21.1 Secondary hyperparathyroidism, not elsewhere classified (principal); E89.1 Postprocedural hypoinsulinemia; D50.9 Iron deficiency anemia, unspecified; E55.9 Vitamin D deficiency, unspecified; K74.1 Hepatic sclerosis; N19 Unspecified kidney failure; K50.90 Crohn's disease, unspecified, without complications; E44.0 Moderate protein-calorie malnutrition
CPT/HCPCS: 36415; 80053; 80061; 82306; 82525; 82607; 82728; 82746; 83036; 83540; 83550; 83735; 83970; 84100; 84134; 84255; 84425; 84443; 84590; 84630; 85027; 85610; 85730

== ENCOUNTER → 2017-10-18 | Outpatient (CLI) | payer BC ==
[2017-10-18 14:13] VITALS: BP 100/64; PULSE 78; TEMP 98; BMI 23.7
--- NOTE | 2017-11-10 23:23 | P.PN ---
Subjective Progress Note Date: 10/18/17 DATE OF SERVICE: 10/18/2017 CHIEF COMPLAINT: Status post gastric bypass HISTORY OF PRESENT ILLNESS: Sherrie Lira is a 52-year-old female status post revision of Luciano-en-Y gastric bypass on 06/20/2016. She is over 1 year out. Her highest weight since her initial operation was in 2012 at 310 pounds. [place] body weight for her 5 foot frame is 154 pounds. She comes in weighing 149 pounds. She has lost 161 pounds. Body mass index is reduced from 49.4 down to 23.7. Percent excess weight loss is 103 %. She is now regaining weight. She reports intermittent epigastric abdominal pain. She denies blood in stools. She had previous history of ulcers. She reports taking Aleve regularly for torn rotator cuff March 2017. Additionally she is taking Xarelto. Her last follow-up was 1 year ago. She has gained 12 pounds. PAST MEDICAL HISTORY: 1. History of morbid obesity. 2. Gastroesophageal reflux disease, now resolved. 3. Dyslipidemia, now resolved. 4. Osteoarthritis, now improved. 5. Prior history of DVTs. 6. Clotting disorder. 7. Chronic migraines 8. Chronic pain syndrome 9. Anxiety 10. Depression PAST SURGICAL HISTORY: 1. Luciano-en-Y gastric bypass. 2. Upper endoscopy. 3. Cholecystectomy. 4. Hysterectomy. 5. Orthopedic procedure. 6. Tubal ligation. 7. D&C. 8. Tonsillectomy. 9. Adenoidectomy. 10. Chronic back injections. 11. Upper endoscopy. 12. Revision of Luciano-en-Y gastric bypass. MEDICATIONS: 1. Cytotec 2. Trintellix 3. Xarelto. 4. Multivitamin. 5. Topamax 6. Seroquel 7. Omeprazole 8. Adamant 9. Flexeril 10. Baclofen. 11. Albuterol inhaler ALLERGIES: 1. ERYTHROMYCIN. 2. PENICILLIN. 3. SULFA. SOCIAL HISTORY: Remote tobacco user. FAMILY HISTORY: Pertinent for morbid obesity. REVIEW OF SYSTEMS: CONSTITUTIONAL: Her highest weight since her initial operation was in 2011 at 310 pounds. [place] body weight for her 5 foot frame is 154 pounds. She comes in weighing 149 pounds. She has lost 161 pounds. Body mass index is reduced from 49.4 down to 23.7. Percent excess weight loss is 103 %. GASTROINTESTINAL: Gastroesophageal reflux disease resolved. History of gastric ulcers. MUSCULOSKELETAL: Severe chronic lower back pain and shoulder pain. HEENT: Denies any trouble with vision or nosebleeds. No difficulty swallowing. Has hearing loss. LYMPHATIC: The patient denies any lumps and bumps around the neck. ENDOCRINE: Denies any thyroid disorders. Denies any blood sugar glucose intolerance. RESPIRATORY: Denies pneumonia. Denies any troubles with breathing or dyspnea on exertion. CARDIOVASCULAR: Denies any chest pain, palpitations, or recent heart attacks. GENITOURINARY: Denies any blood in urine or increased urinary frequency. NEUROLOGIC: Denies any numbness or tingling along the distal extremities. No seizure disorders or headaches. PSYCHIATRIC: Had depression or suidical ideation. PHYSICAL EXAM: VITAL SIGNS: 5 foot 6-07/18, 149 pounds. Body mass index 23.7 Vital Signs Temp 98 F 10/18/17 14:37 Pulse 78 10/18/17 14:37 Resp BP 100/64 10/18/17 14:37 Pulse Ox ABDOMEN: Soft, nondistended. No palpable incisional hernias. Minimal tenderness in epigastrium. MUSCULOSKELETAL: No clubbing, cyanosis, or edema. GENERAL: Well-developed female in no acute distress. HEENT: No sclera icterus. Extraocular movements grossly intact. Moist buccal mucosa. Head is atraumatic, normocephalic. Wears hearing aid. No nasal drainage. NECK: Supple without lymphadenopathy. No JV distention. CHEST: Non-labored respirations and equal bilateral excursions. CARDIOVASCULAR: Regular rate and rhythm. Palpable 2+ radial pulses. NEUROLOGIC: No focal or lateralizing signs. PSYCH: Appropriate affect. Alert and oriented to person, place and time. SKIN: Well perfused. Good skin turgor. ASSESSMENT: 1. Morbid obesity excess calories, resolved 2. Body mass index reduced from 49.4 down to 23.7. 3. Epigastric abdominal pain 4. Status post Luciano-en-Y gastric bypass. 5. Chronic lower back pain. 6. History of chronic anticoagulant therapy. 7. History of blood clotting disorder. 8. Gastrojejunal stricture. 9. Chronic pain syndrome PLAN: 1. Recommend bariatric panel 2. Recommend upper endoscopy for history of gastric ulcer 3. May need balloon dilation for history of stricture Objective - Vital Signs Vital signs: Vital Signs Temp 98 F 10/18/17 13:58 Pulse 78 10/18/17 13:58 Resp BP 100/64 10/18/17 13:58 Pulse Ox Intake & Output 10/17/17 10/18/17 10/18/17 18:59 06:59 18:59 Weight 67.676 kg
== END | disposition home or self-care (01) ==
LOC: BARWHC3 13:14
PROVIDERS: ATTEND Surgery Plastic and Reconstructive Surgery
DX: Z09 Encounter for follow-up examination after completed treatment for conditions other than malignant neoplasm (principal); R10.9 Unspecified abdominal pain; R10.13 Epigastric pain; G89.4 Chronic pain syndrome; D68.9 Coagulation defect, unspecified; K91.89 Other postprocedural complications and disorders of digestive system; M19.90 Unspecified osteoarthritis, unspecified site; G43.709 Chronic migraine without aura, not intractable, without status migrainosus; F32.9 Major depressive disorder, single episode, unspecified; F41.9 Anxiety disorder, unspecified; Z90.49 Acquired absence of other specified parts of digestive tract; Z98.51 Tubal ligation status; Z79.01 Long term (current) use of anticoagulants; Z86.718 Personal history of other venous thrombosis and embolism; Z98.84 Bariatric surgery status; Z79.899 Other long term (current) drug therapy; Z79.51 Long term (current) use of inhaled steroids; Z79.891 Long term (current) use of opiate analgesic; Z88.0 Allergy status to penicillin; Z88.2 Allergy status to sulfonamides; Z88.1 Allergy status to other antibiotic agents
CPT/HCPCS: 99211

== ENCOUNTER 2017-10-20 09:45 | Day surgery (SDC) | payer BC ==
[2017-10-19 09:31] VITALS: BMI 23.3
[~2017-10-20 09:45] MED LIST changes: -DEXAMETHASONE SOD PHOSPHATE 10 MG/ML 1 ML VIAL IV ONE; -HYDROmorphone 1 MG/ML 1 ML SYRINGE IVP PRN; +LACTATED RINGERS 1,000 ML IV SCH; -ONDANSETRON 4 MG/2 ML VIAL IVP ONE; -SCOPOLAMINE 1.5MG/72HR PATCH TRANSDERM ONE; -ceFAZolin 2 GM in SODIUM CHLORIDE 0.9% 100 ML IVPB ONE
[2017-10-20 10:04] VITALS: RESP 16; TEMP 97.5
[2017-10-20] MEDS ORDERED: ONDANSETRON 4 MG/2 ML VIAL IVP ONE (10:10)
[2017-10-20] MEDS ORDERED: PROPOFOL 10 MG/ML 20 ML VIAL IV ONE (10:31)
--- NOTE | 2017-10-20 10:33 | P.GSHP ---
History of Present Illness H&P Date: 10/20/17 CHIEF COMPLAINT: GERD HISTORY OF PRESENT ILLNESS: The patient is a 52-year-old female who presents reports gastroesophageal reflux disease. Upper endoscopy was offered for further evaluation and management. PAST MEDICAL HISTORY: Please see list. PAST SURGICAL HISTORY: Please see list. MEDICATIONS: Please see list. ALLERGIES: Please see list. SOCIAL HISTORY: No illicit drug use FAMILY HISTORY: No reports of Crohn disease or ulcerative colitis. REVIEW OF ORGAN SYSTEMS: CONSTITUTIONAL: No reports of fevers or chills. GI: Denies any blood in stools or constipation. PHYSICAL EXAM: VITAL SIGNS: Stable GENERAL: Well-developed and pleasant in no acute distress. HEENT: No scleral icterus. Extraocular movements grossly intact. Moist buccal mucosa. NECK: Supple without lymphadenopathy. CHEST: Unlabored respirations. Equal bilateral excursions. CARDIOVASCULAR: Regular rate and rhythm. Distal 2+ pulses. ABDOMEN: Soft, nondistended. MUSCULOSKELETAL: No clubbing, cyanosis, or edema. ASSESSMENT: 1. Gastroesophageal reflux disease PLAN: 1. Recommend proceeding with an upper endoscopy Past Medical History Past Medical History: Asthma, Blood Disorder, Deep Vein Thrombosis (DVT), Osteoarthritis (OA) Additional Past Medical History / Comment(s): migraines, prothrombin 56603H clotting disorder, ulcers, History of Any Multi-Drug Resistant Organisms: None Reported Past Surgical History: Adenoidectomy, Bariatric Surgery, Cholecystectomy, Hysterectomy, Orthopedic Surgery, Tonsillectomy Additional Past Surgical History / Comment(s): gastric bypass, mary knee arthroscopy, gastric fistula repair , left shoulder rotator cuff Past Anesthesia/Blood Transfusion Reactions: Motion Sickness, Postoperative Nausea & Vomiting (PONV) Smoking Status: Former smoker - Past Family History Mother Family Medical History: Cancer Additional Family Medical History / Comment(s): uterine cancer Father Family Medical History: Deep Vein Thrombosis (DVT) Additional Family Medical History / Comment(s): heart issues Medications and Allergies Home Medications Medication Instructions Recorded Confirmed Type Baclofen [Lioresal] 20 mg PO HS 04/28/16 10/20/17 History Topiramate [Topamax] 50 mg PO HS 04/28/16 10/20/17 History Rivaroxaban [Xarelto] 20 mg PO HS 06/30/16 10/20/17 History Cyclobenzaprine [Flexeril] 10 mg PO Q12HR 09/29/16 10/20/17 History QUEtiapine FUMARATE [SEROquel] 25 mg PO QID PRN 09/29/16 10/20/17 History Omeprazole 40 mg PO HS 03/10/17 10/20/17 History HYDROcodone/APAP 7.5-325MG [[place] 1 - 2 tab PO Q6HR PRN #60 tab 03/22/17 Rx 7.5-325] Misoprostol [Cytotec] 200 mcg PO QID 10/18/17 10/20/17 History Vortioxetine Hydrobromide 5 mg PO HS 10/18/17 10/20/17 History [Trintellix] Albuterol Inhaler [Ventolin Hfa 1 - 2 puff INHALATION Q6HR PRN 10/19/17 History Inhaler] Multivitamins, Thera [Multivitamin 1 tab PO DAILY 10/19/17 10/20/17 History (formulary)] Allergies Allergy/AdvReac Type Severity Reaction Status Date / Time bupropion HCl [From Zyban] Allergy seizures Verified 10/20/17 09:58 erythromycin base Allergy Rash/Hives Verified 10/20/17 09:58 [Erythromycin Base] Penicillins Allergy Rash/Hives, Verified 10/20/17 09:58 SHORTNESS OF BREATH sucralfate [From Carafate] Allergy Abdominal Verified 10/20/17 09:58 Pain/vomiting Sulfa (Sulfonamide Allergy Rash/Hives, Verified 10/20/17 09:58 Antibiotics) SHORTNESS OF BREATH Surgical - Exam Vital Signs Temp Pulse Resp BP Pulse Ox 97.5 F L 80 16 122/78 99 10/20/17 10:02 10/20/17 10:02 10/20/17 10:02 10/20/17 10:02 10/20/17 10:02
--- NOTE | 2017-10-20 10:50 | P.PCN ---
Date of Procedure: 10/20/17 Description of Procedure: PREOPERATIVE DIAGNOSIS: Dysphagia. Epigastric pain POSTOPERATIVE DIAGNOSIS: Dysphagia. Epigastric pain Gastrojejunal stricture without chronic ulcer without perforation OPERATION: Esophagogastrojejunoscopy with balloon dilatation from 15 to 20 mm. SURGEON: Ansley Bustamante MD ANESTHESIA: MAC. INDICATIONS: The patient is a 52-year-old female who presents with a history of dysphagia including epigastric new-onset nausea and vomiting. Benefits and risks of the procedure were described. Informed consent was obtained. DESCRIPTION: The patient was brought into the endoscopy suite and laid in the left lateral decubitus position. After a timeout was confirmed, the procedure was initiated. An Olympus gastroscope was passed along the posterior oropharynx down to the distal esophagus where the squamocolumnar junction was unremarkable. The gastric pouch was entered. A gastrojejunal stricture of 15 mm was found as the adult gastroscope was 9.5 mm in size. A Recargo balloon dilator was placed through the scope. Final insufflation up to 20 mm was performed with a total of 2 minutes. The scope was advanced up to 60 cm from the incisors into the Luciano limb. The mucosa of the gastrojejunal anastomosis was intact. However chronic gastrojejunal marginal ulcer was encountered. No full-thickness injury was encountered. The GI tract was desufflated. The patient tolerated the procedure well. FINDINGS: Squamocolumnar junction unremarkable at 37 cm. Stricture of approximately 9.5 mm encountered. No chronic gastrojejunal ulceration encountered. Successful balloon dilatation to 20 mm. RECOMMENDATIONS: Liquid diet. Upper endoscopy as needed. Plan - Discharge Summary New Discharge Prescriptions: No Action Topiramate [Topamax] 50 mg PO HS Baclofen [Lioresal] 20 mg PO HS Rivaroxaban [Xarelto] 20 mg PO HS QUEtiapine FUMARATE [SEROquel] 25 mg PO QID PRN PRN Reason: Anxiety Cyclobenzaprine [Flexeril] 10 mg PO Q12HR Omeprazole 40 mg PO HS HYDROcodone/APAP 7.5-325MG [[place] 7.5-325] 1 - 2 tab PO Q6HR PRN #60 tab PRN Reason: Pain Vortioxetine Hydrobromide [Trintellix] 5 mg PO HS Misoprostol [Cytotec] 200 mcg PO QID Multivitamins, Thera [Multivitamin (formulary)] 1 tab PO DAILY Albuterol Inhaler [Ventolin Hfa Inhaler] 1 - 2 puff INHALATION Q6HR PRN PRN Reason: sob Discharge Medication List Baclofen [Lioresal] 20 mg PO HS 04/28/16 [History] Topiramate [Topamax] 50 mg PO HS 04/28/16 [History] Rivaroxaban [Xarelto] 20 mg PO HS 06/30/16 [History] Cyclobenzaprine [Flexeril] 10 mg PO Q12HR 09/29/16 [History] QUEtiapine FUMARATE [SEROquel] 25 mg PO QID PRN 09/29/16 [History] Omeprazole 40 mg PO HS 03/10/17 [History] HYDROcodone/APAP 7.5-325MG [[place] 7.5-325] 1 - 2 tab PO Q6HR PRN #60 tab [Rx] Misoprostol [Cytotec] 200 mcg PO QID 10/18/17 [History] Vortioxetine Hydrobromide [Trintellix] 5 mg PO HS 10/18/17 [History] Albuterol Inhaler [Ventolin Hfa Inhaler] 1 - 2 puff INHALATION Q6HR PRN [History] Multivitamins, Thera [Multivitamin (formulary)] 1 tab PO DAILY 10/19/17 [History ]
[2017-10-20 11:08] VITALS: BP 126/83; PULSE 78
--- NOTE | 2017-10-24 15:54 | CDI ---
Outpatient Documentation Clarification Form Date: 10/24/17 CDS/Shaving Machine Operator Name: Lucia Nye Phone: If any questions, call Cass Quesada Ed Transporter at [phone] Patient Name: Sherrie Lira Admit Date: 10/20/17 Discharge Date: 10/20/17 ATTENTION: The [facility] Coding Staff appreciate your assistance in clarifying documentation. Please respond to the clarification below the line at the bottom and electronically sign. The [facility] Coding staff will review the response and follow-up if needed. Please note: Queries are made part of the Legal Health Record. If you have any questions, please contact the Ed Transporter. Dear Dr. Bustamante, The operative reports states that there both was and was not a chronic gastrojejunal ulceration found. Would you please clearly state if there was or was not a chronic gastrojejunal ulcer? Thank you for your kind consideration. Please see amended report. NO ulceration. MTDD
== END 2017-10-20 11:26 | disposition home or self-care (01) ==
LOC: ORWHC2ENDO 09:45
PROVIDERS: ATTEND Surgery Plastic and Reconstructive Surgery
DX: K31.89 Other diseases of stomach and duodenum (principal); K63.89 Other specified diseases of intestine; Z98.84 Bariatric surgery status; K21.9 Gastro-esophageal reflux disease without esophagitis; J45.909 Unspecified asthma, uncomplicated; M19.90 Unspecified osteoarthritis, unspecified site; G43.909 Migraine, unspecified, not intractable, without status migrainosus; D68.52 Prothrombin gene mutation; Z86.718 Personal history of other venous thrombosis and embolism; Z79.01 Long term (current) use of anticoagulants; Z79.899 Other long term (current) drug therapy; Z88.1 Allergy status to other antibiotic agents; Z88.0 Allergy status to penicillin; Z88.2 Allergy status to sulfonamides; Z88.8 Allergy status to other drugs, medicaments and biological substances; Z87.891 Personal history of nicotine dependence
CPT/HCPCS: 43245; 43249

== ENCOUNTER → 2017-11-15 | Outpatient (CLI) | payer BC ==
[2017-11-15 15:49] VITALS: BP 110/73; PULSE 75; RESP 16; TEMP 98; BMI 23.2
--- NOTE | 2017-11-15 16:37 | P.PN ---
Subjective Progress Note Date: 11/15/17 DATE OF SERVICE: 11/15/2017 CHIEF COMPLAINT: Status post gastric bypass HISTORY OF PRESENT ILLNESS: Sherrie Lira is a 52-year-old female status post revision of Luciano-en-Y gastric bypass on 06/20/2016. She is over 1 year out. Her last visit was 10/18/2017. Her highest weight since her initial operation was in 2011 at 310 pounds. [place] body weight for her 5 foot frame is 154 pounds. She comes in weighing 146 pounds. She has lost 164 pounds. Body mass index is reduced from 49.4 down to 23.2. Percent excess weight loss is 105 %. She had no ulcer on upper scope. She reports persistent epigastric abdominal pain worse in the morning and midday. She eats less at night than in the morning. She is no longer taking Aleve for pain. She is taking Omeprazole. PAST MEDICAL HISTORY: 1. History of morbid obesity, BMI 49.4, initial 2. Gastroesophageal reflux disease, now resolved. 3. Dyslipidemia, now resolved. 4. Osteoarthritis, now improved. 5. Prior history of DVTs. 6. Clotting disorder. 7. Chronic migraines 8. Chronic pain syndrome 9. Anxiety 10. Depression PAST SURGICAL HISTORY: 1. Luciano-en-Y gastric bypass. 2. Upper endoscopy. 3. Cholecystectomy. 4. Hysterectomy. 5. Orthopedic procedure. 6. Tubal ligation. 7. D&C. 8. Tonsillectomy. 9. Adenoidectomy. 10. Chronic back injections. 11. Upper endoscopy. 12. Revision of Luciano-en-Y gastric bypass. MEDICATIONS: 1. Cytotec 2. Trintellix 3. Xarelto. 4. Multivitamin. 5. Topamax 6. Seroquel 7. Omeprazole 8. [place] 9. Flexeril 10. Baclofen. 11. Albuterol inhaler ALLERGIES: 1. ERYTHROMYCIN. 2. PENICILLIN. 3. SULFA. SOCIAL HISTORY: Remote tobacco user. FAMILY HISTORY: Pertinent for morbid obesity. REVIEW OF SYSTEMS: CONSTITUTIONAL: Her highest weight since her initial operation was in 2011 at 310 pounds. [place] body weight for her 5 foot frame is 154 pounds. She comes in weighing 146 pounds. She has lost 164 pounds. Body mass index is reduced from 49.4 down to 23.2. Percent excess weight loss is 105 %. GASTROINTESTINAL: Gastroesophageal reflux disease resolved. History of gastric ulcers. MUSCULOSKELETAL: Severe chronic lower back pain and shoulder pain. HEENT: Denies any trouble with vision or nosebleeds. No difficulty swallowing. Has hearing loss. LYMPHATIC: The patient denies any lumps and bumps around the neck. ENDOCRINE: Denies any thyroid disorders. Denies any blood sugar glucose intolerance. RESPIRATORY: Denies pneumonia. Denies any troubles with breathing or dyspnea on exertion. CARDIOVASCULAR: Denies any chest pain, palpitations, or recent heart attacks. GENITOURINARY: Denies any blood in urine or increased urinary frequency. NEUROLOGIC: Denies any numbness or tingling along the distal extremities. No seizure disorders or headaches. PSYCHIATRIC: Had depression or suidical ideation. PHYSICAL EXAM: VITAL SIGNS: 5 foot 6-07/18, 146 pounds. Body mass index 23.2 Vital Signs Temp 98 F 11/15/17 15:46 Pulse 75 11/15/17 15:46 Resp 16 11/15/17 15:46 BP 110/73 11/15/17 15:46 Pulse Ox Intake & Output 11/14/17 11/15/17 11/15/17 18:59 06:59 18:59 Weight 66.253 kg ABDOMEN: Soft, nondistended. No palpable incisional hernias. MUSCULOSKELETAL: No clubbing, cyanosis, or edema. GENERAL: Well-developed female in no acute distress. HEENT: No sclera icterus. Extraocular movements grossly intact. Moist buccal mucosa. Head is atraumatic, normocephalic. Wears hearing aid. No nasal drainage. NECK: Supple without lymphadenopathy. No JV distention. CHEST: Non-labored respirations and equal bilateral excursions. CARDIOVASCULAR: Regular rate and rhythm. Palpable 2+ radial pulses. NEUROLOGIC: No focal or lateralizing signs. PSYCH: Appropriate affect. Alert and oriented to person, place and time. SKIN: Well perfused. Good skin turgor. ASSESSMENT: 1. Morbid obesity excess calories, resolved 2. Body mass index reduced from 49.4 down to 23.2. 3. Epigastric abdominal pain 4. Status post Luciano-en-Y gastric bypass. 5. Chronic lower back pain. 6. History of chronic anticoagulant therapy. 7. History of blood clotting disorder. 8. Gastrojejunal stricture. 9. Chronic pain syndrome 10. Irritable bowel syndrome PLAN: 1. Bentyl is recommended for irritable bowel syndome and will try for symptom resolution. 2. No ulcers but continue with Omeprazole for Xarelto. 3. She will notify us if symptoms are improved. Objective - Vital Signs Vital signs: Vital Signs Temp 98 F 11/15/17 15:46 Pulse 75 11/15/17 15:46 Resp 16 11/15/17 15:46 BP 110/73 11/15/17 15:46 Pulse Ox Intake & Output 11/14/17 11/15/17 11/15/17 18:59 06:59 18:59 Weight 66.253 kg
== END | disposition home or self-care (01) ==
LOC: BARWHC3 15:05
PROVIDERS: ATTEND Surgery Plastic and Reconstructive Surgery
DX: Z09 Encounter for follow-up examination after completed treatment for conditions other than malignant neoplasm (principal); R10.13 Epigastric pain; M54.5 Low back pain; G89.4 Chronic pain syndrome; K56.699 Other intestinal obstruction unspecified as to partial versus complete obstruction; Z86.2 Personal history of diseases of the blood and blood-forming organs and certain disorders involving the immune mechanism; Z98.84 Bariatric surgery status; Z88.0 Allergy status to penicillin; Z88.2 Allergy status to sulfonamides; Z88.1 Allergy status to other antibiotic agents; Z79.899 Other long term (current) drug therapy; Z79.891 Long term (current) use of opiate analgesic
CPT/HCPCS: 99211

== ENCOUNTER → 2018-09-03 | Outpatient (CLI) | payer BC ==
[2018-09-03 23:25] LABS: ALT 54 U/L (8-44); AST 37 U/L (13-35); Albumin/Globulin Ratio 3.15 (1.60-3.17); Alkaline Phosphatase 121 U/L (41-126); Bilirubin, Conjugated <0.20 mg/dL (0.20-0.40); Globulin 1.3 g/dL (1.6-3.3); Total Bilirubin 0.2 mg/dL (0.2-1.2); Total Protein 5.4 g/dL (6.2-8.2)
[2018-09-04 08:13] LABS: Hepatitis A Antibody IgM Non-Reactive (Non-Reactive); Hepatitis B Core IgM Non-Reactive (Non-Reactive)
== END | disposition home or self-care (01) ==
LOC: LABWHC1 17:22
PROVIDERS: ATTEND Family Medicine
DX: R74.8 Abnormal levels of other serum enzymes (principal)
CPT/HCPCS: 36415; 80074; 80076

== ENCOUNTER 2018-11-11 11:31 | Emergency (ER) | payer BC ==
[2018-11-11 11:36] VITALS: RESP 16
[2018-11-11 12:27] LABS: Basophils # (A) 0.1 k/uL (0-0.2); Basophils % (A) 2 %; Eosinophils # (A) 0.4 k/uL (0-0.7); Eosinophils % (A) 7 %; Lymphocytes # (A) 0.9 k/uL (1.0-4.8); Lymphocytes % (A) 17 %; MCH 29.4 pg (25.0-35.0); MCHC 31.7 g/dL (31.0-37.0); MCV 92.6 fL (80.0-100.0); Mean Platelet Volume 7.7; Monocytes # (A) 0.3 k/uL (0-1.0); Monocytes % (A) 5 %; Neutrophils # (A) 3.5 k/uL (1.3-7.7); Neutrophils % (A) 66 %; Platelet Count 236 k/uL (150-450); RBC 4.43 m/uL (3.80-5.40); RDW 13.1 % (11.5-15.5); WBC 5.4 k/uL (3.8-10.6)
[2018-11-11 12:37] LABS: ALT 173 U/L (9-52); AST 58 U/L (14-36); Albumin 3.3 g/dL (3.5-5.0); Alkaline Phosphatase 117 U/L (38-126); Anion Gap 5 mmol/L; Blood Urea Nitrogen 9 mg/dL (7-17); Calcium 8.7 mg/dL (8.4-10.2); Carbon Dioxide 26 mmol/L (22-30); Chloride 110 mmol/L (98-107); Glucose 102 mg/dL (74-99); Potassium 4.6 mmol/L (3.5-5.1); Sodium 141 mmol/L (137-145); Total Bilirubin 0.3 mg/dL (0.2-1.3); Total Protein 5.3 g/dL (6.3-8.2)
--- NOTE | 2018-11-11 12:45 | US ---
EXAMINATION TYPE: US venous doppler duplex LE LT DATE OF EXAM: 11/11/2018 12:39 PM COMPARISON: NONE CLINICAL HISTORY: Pain. Patient state history of DVT in left leg. Currently taking blood thinners. Pa in left knee SIDE PERFORMED: Left TECHNIQUE: The lower extremity deep venous system is examined utilizing real time linear array sonog vanessa with graded compression, doppler sonography and color-flow sonography. VESSELS IMAGED: External Iliac Vein (EIV) Common Femoral Vein Deep Femoral Vein Greater Saphenous Vein * Femoral Vein Popliteal Vein Small Saphenous Vein * Proximal Calf Veins (* superficial vessels) Left Leg: Appears positive for chronic appearing DVT from the left EIV to the left popliteal vein. No popliteal fossa lesion was identified. IMPRESSION: THIS EXAMINATION IS NEGATIVE FOR DVT WITHIN THE LEFT LEG.
[2018-11-11 12:49] LABS: INR 0.9 (<1.2); Partial Thromboplastin Time 27.2 sec (22.0-30.0); Prothrombin Time 9.9 sec (9.0-12.0)
--- NOTE | 2018-11-11 13:05 | ED ---
General Adult HPI - General Chief complaint: Extremity Problem,Nontraumatic Stated complaint: Poss blood in leg Time Seen by Provider: 11/11/18 11:41 Source: patient, RN notes reviewed, old records reviewed Mode of arrival: ambulatory Limitations: no limitations - History of Present Illness Initial comments: 53-year-old female patient past medical history of clotting disorder, prior PE and DVT presents to ED for evaluation of 2 days of left calf pain. Patient states that she is anticoagulated on for L2 and has not had a blood clot in over 20 years. Patient states that the pain in her left lower extremity is in her proximal calf and behind her knee. Patient port that she does have a history of chronic knee pain and this does feel somewhat similar to that. He states that she is primarily presenting to ED to rule out a blood clot. Patient denies any chest pain or shortness of breath. Patient denies any other complaints. Systemic: Pt denies fatigue, myalgia, fever/chills, rash. Pt denies weakness, night sweats, weight loss. Neuro: Pt denies headache, visual disturbances, syncope or pre-syncope. HEENT: Pt denies ocular discharge or irritation, otalgia, rhinorrhea, pharyngitis or notable lymphadenopathy. Cardiopulmonary: Pt denies chest pain, SOB, heart palpitations, dyspnea on exertion. Abdominal/GI: Pt denies abdominal pain, n/v/d. : Pt denies dysuria, burning w/ urination, frequency/urgency. Denies new onset urinary or bowel incontinence. MSK: Pt denies myalgia, loss of strength or function in extremities. Neuro: Pt denies new onset weakness, paresthesias. - Related Data Home Medications Medication Instructions Recorded Confirmed Baclofen [Lioresal] 20 mg PO HS 04/28/16 11/15/17 Topiramate [Topamax] 50 mg PO HS 04/28/16 11/15/17 Rivaroxaban [Xarelto] 20 mg PO HS 06/30/16 11/15/17 Cyclobenzaprine [Flexeril] 10 mg PO Q12HR 09/29/16 11/15/17 QUEtiapine FUMARATE [SEROquel] 25 mg PO QID PRN 09/29/16 11/15/17 Omeprazole 40 mg PO HS 03/10/17 11/15/17 Misoprostol [Cytotec] 200 mcg PO QID 10/18/17 11/15/17 Vortioxetine Hydrobromide 5 mg PO HS 10/18/17 11/15/17 [Trintellix] Albuterol Inhaler [Ventolin Hfa 1 - 2 puff INHALATION Q6HR PRN 10/19/17 11/15/17 Inhaler] Multivitamins, Thera [Multivitamin 1 tab PO DAILY 10/19/17 11/15/17 (formulary)] Previous Rx's Medication Instructions Recorded HYDROcodone/APAP 7.5-325MG [Modena 1 - 2 tab PO Q6HR PRN #60 tab 03/22/17 7.5-325] Dicyclomine [Bentyl] 10 mg PO QID #30 capsule 11/15/17 Allergies Allergy/AdvReac Type Severity Reaction Status Date / Time bupropion HCl [From Zyban] Allergy seizures Verified 11/11/18 11:36 erythromycin base Allergy Rash/Hives Verified 11/11/18 11:36 [Erythromycin Base] Penicillins Allergy Rash/Hives, Verified 11/11/18 11:36 SHORTNESS OF BREATH sucralfate [From Carafate] Allergy Abdominal Verified 11/11/18 11:36 Pain/vomiting Sulfa (Sulfonamide Allergy Rash/Hives, Verified 11/11/18 11:36 Antibiotics) SHORTNESS OF BREATH Review of Systems ROS Statement: Those systems with pertinent positive or pertinent negative responses have been documented in the HPI. ROS Other: All systems not noted in ROS Statement are negative. 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, ulcers, History of Any Multi-Drug Resistant Organisms: None Reported Past Surgical History: Adenoidectomy, Bariatric Surgery, Cholecystectomy, Hysterectomy, Orthopedic Surgery, Tonsillectomy Additional Past Surgical History / Comment(s): gastric bypass, mary knee arthroscopy, gastric fistula repair , left shoulder rotator cuff Past Anesthesia/Blood Transfusion Reactions: Motion Sickness, Postoperative Nausea & Vomiting (PONV) Past Psychological History: Anxiety, Depression Smoking Status: Former smoker Past Alcohol Use History: Rare Past Drug Use History: None Reported - Past Family History Mother Family Medical History: Cancer Additional Family Medical History / Comment(s): uterine cancer Father Family Medical History: Deep Vein Thrombosis (DVT) Additional Family Medical History / Comment(s): heart issues General Exam - General Exam Comments Initial Comments: Constitutional: NAD, AOX3, Pt has pleasant affect. HEENT: NC/AT, trachea midline, neck supple, no lymphadenopathy. Posterior pharynx non erythematous, without exudates. External ears appear normal, without discharge. Mucous membranes moist. Eyes PERRLA, EOM intact. There is no scleral icterus. No pallor noted. Cardiopulmonary: RRR, no murmurs, rubs or gallops, no JVD noted. Lungs CTAB in anterior and posterior kong. No peripheral edema. Abdominal exam: Abdomen soft and non-distended. Abdomen non-tender to palpation in all 4 quadrants. Bowel sounds active in LLQ. No hepatosplenomegaly. No ecchymosis Neuro: CN II-XII grossly intact. No nuchal rigidity. MSK: posterior L calf mildly tender to palpation, posterior R calf nontender to palpation. No erythema. Mild amount of left lower extremity edema which is chronic for patient. Homans sign negative bilaterally. Posterior tibialis and radial pulse +2 bilaterally. Sensation intact in upper and lower extremities. Full active ROM in upper and lower extremities, 5/5 stregnth. Limitations: no limitations Course Vital Signs 11/11/18 11:33 Temperature 98.4 F Pulse Rate 72 Respiratory 16 Rate Blood Pressure 108/59 O2 Sat by Pulse 98 Oximetry Medical Decision Making - Medical Decision Making 53-year-old female patient past medical history of clotting disorder, prior PE and DVT presents to ED for evaluation of 2 days of left calf pain. Patient states that she is anticoagulated on for L2 and has not had a blood clot in over 20 years. Patient states that the pain in her left lower extremity is in her proximal calf and behind her knee. Patient port that she does have a history of chronic knee pain and this does feel somewhat similar to that. He states that she is primarily presenting to ED to rule out a blood clot. Patient denies any chest pain or shortness of breath. Patient denies any other complaints. Pt VSS, afebrile. Physical exam displayed: posterior L calf mildly tender to palpation, posterior R calf nontender to palpation. No erythema. Mild amount of left lower extremity edema which is chronic for patient. Homans sign negative bilaterally. Posterior tibialis and radial pulse +2 bilaterally. Laboratory investigations revealed: None process CBC, coagulation studies within normal limits. CMP revealed mildly elevated liver enzymes. Patient is following up with this with primary care provider. Ultrasound of left lower extremity was negative for acute DVT, positive for chronic DVT in left leg. Further history taking patient continues to deny any chest pain or shortness of breath. Patient will discharge, patient will follow-up with her primary care prior tomorrow for continued evaluation of anticoagulation. Patient will return to ER if condition worsens in anyway. Case discussed with Dr. Durand. - Lab Data Result diagrams: 11/11/18 12:07 11/11/18 12:07 Lab Results 11/11/18 11/11/18 11/11/18 Range/Units 12:07 12:07 12:07 WBC 5.4 (3.8-10.6) k/uL RBC 4.43 (3.80-5.40) m/uL Hgb 13.0 (11.4-16.0) gm/dL Hct 41.0 (34.0-46.0) % MCV 92.6 (80.0-100.0) fL MCH 29.4 (25.0-35.0) pg MCHC 31.7 (31.0-37.0) g/dL RDW 13.1 (11.5-15.5) % Plt Count 236 (150-450) k/uL Neutrophils % 66 % Lymphocytes % 17 % Monocytes % 5 % Eosinophils % 7 % Basophils % 2 % Neutrophils # 3.5 (1.3-7.7) k/uL Lymphocytes # 0.9 L (1.0-4.8) k/uL Monocytes # 0.3 (0-1.0) k/uL Eosinophils # 0.4 (0-0.7) k/uL Basophils # 0.1 (0-0.2) k/uL PT 9.9 (9.0-12.0) sec INR 0.9 (<1.2) APTT 27.2 (22.0-30.0) sec Sodium 141 (137-145) mmol/L Potassium 4.6 (3.5-5.1) mmol/L Chloride 110 H (98-107) mmol/L Carbon Dioxide 26 (22-30) mmol/L Anion Gap 5 mmol/L BUN 9 (7-17) mg/dL Creatinine 0.72 (0.52-1.04) mg/dL Est GFR (CKD-EPI)AfAm >90 (>60 ml/min/1.73 sqM) Est GFR (CKD-EPI)NonAf >90 (>60 ml/min/1.73 sqM) Glucose 102 H (74-99) mg/dL Calcium 8.7 (8.4-10.2) mg/dL Total Bilirubin 0.3 (0.2-1.3) mg/dL AST 58 H (14-36) U/L ALT 173 H (9-52) U/L Alkaline Phosphatase 117 (38-126) U/L Total Protein 5.3 L (6.3-8.2) g/dL Albumin 3.3 L (3.5-5.0) g/dL Disposition Clinical Impression: Chronic deep vein thrombosis (DVT) Disposition: HOME SELF-CARE Condition: Stable Instructions (If sedation given, give patient instructions): Deep Vein Thrombosis Prevention (ED) Additional Instructions: Patient to adhere to previously discussed treatment plan and will take medication(s) as directed. Patient to follow up with PCP in 1-2 days. Patient to return to ED if symptoms do not improve. Please follow up with PCP tomorrow. Please return to ER if condition worsens in anyway. Return to ER immediately if develop chest pain or SOB. Is patient prescribed a controlled substance at d/c from ED?: No Referrals: Dm Morris MD [Primary Care Provider] - 1-2 days
[2018-11-11 14:19] VITALS: BP 132/70; PULSE 81; TEMP 98.6
== END 2018-11-11 14:18 | disposition home or self-care (01) ==
LOC: EC 11:31
DX: I82.532 Chronic embolism and thrombosis of left popliteal vein (principal); R94.5 Abnormal results of liver function studies; J45.909 Unspecified asthma, uncomplicated; F41.9 Anxiety disorder, unspecified; F32.9 Major depressive disorder, single episode, unspecified; Z79.01 Long term (current) use of anticoagulants; Z79.899 Other long term (current) drug therapy; Z88.0 Allergy status to penicillin; Z88.1 Allergy status to other antibiotic agents; Z88.2 Allergy status to sulfonamides; Z88.8 Allergy status to other drugs, medicaments and biological substances; Z87.891 Personal history of nicotine dependence; Z98.84 Bariatric surgery status; Z86.711 Personal history of pulmonary embolism
CPT/HCPCS: 36415; 80053; 85025; 85610; 85730; 99284

== ENCOUNTER → 2019-06-19 | Outpatient (CLI) | payer BC ==
--- NOTE | 2019-06-19 16:52 | P.PN ---
Subjective Progress Note Date: 06/19/19 DATE OF SERVICE: 06/19/2019 CHIEF COMPLAINT: Status post gastric bypass HISTORY OF PRESENT ILLNESS: Sherrie Lira is a 53-year-old female status post revision of Luciano-en-Y gastric bypass on 06/20/2016. Her index operation was 2011. She is 7 years out. She has dysphagia and has history gastrojejunal stricture. She does report mild epigastric pain. She comes in with new concern of dysphagia to solid foods. Her highest weight since her initial operation was in 2011 at 310 pounds. Pelham body weight for her 5 foot 6.5 inch frame is 154 pounds. She comes in weighing 166 pounds from 146 pounds, 1.5 years ago. She has gained 20 pounds in 1.5 years. Lifetime weight loss is 144 pounds. Body mass index is reduced from 49.4 down to 26.4. Percent excess weight loss is 93 %. PAST MEDICAL HISTORY: 1. History of morbid obesity, BMI 49.4, initial 2. Gastroesophageal reflux disease, now resolved. 3. Dyslipidemia, now resolved. 4. Osteoarthritis, now improved. 5. Prior history of DVTs. 6. Clotting disorder. 7. Chronic migraines 8. Chronic pain syndrome 9. Anxiety 10. Depression PAST SURGICAL HISTORY: 1. Luciano-en-Y gastric bypass. 2. Upper endoscopy. 3. Cholecystectomy. 4. Hysterectomy. 5. Orthopedic procedure. 6. Tubal ligation. 7. D&C. 8. Tonsillectomy. 9. Adenoidectomy. 10. Chronic back injections. 11. Upper endoscopy. 12. Revision of Luciano-en-Y gastric bypass. MEDICATIONS: 1. Cytotec 2. Trintellix 3. Xarelto. 4. Multivitamin. 5. Topamax 6. Seroquel 7. Omeprazole 8. Leona 9. Flexeril 10. Baclofen. 11. Albuterol inhaler ALLERGIES: 1. ERYTHROMYCIN. 2. PENICILLIN. 3. SULFA. SOCIAL HISTORY: Remote tobacco user. FAMILY HISTORY: Pertinent for morbid obesity. REVIEW OF SYSTEMS: CONSTITUTIONAL: Her highest weight since her initial operation was in 2011 at 310 pounds. Pelham body weight for her 5 foot frame is 154 pounds. She comes in weighing 146 pounds. She has lost 164 pounds. Body mass index is reduced from 49.4 down to 23.2. Percent excess weight loss is 105 %. GASTROINTESTINAL: Gastroesophageal reflux disease resolved. History of gastric ulcers. MUSCULOSKELETAL: Severe chronic lower back pain and shoulder pain. HEENT: Denies any trouble with vision or nosebleeds. No difficulty swallowing. Has hearing loss. LYMPHATIC: The patient denies any lumps and bumps around the neck. ENDOCRINE: Denies any thyroid disorders. Denies any blood sugar glucose intolerance. RESPIRATORY: Denies pneumonia. Denies any troubles with breathing or dyspnea on exertion. CARDIOVASCULAR: Denies any chest pain, palpitations, or recent heart attacks. GENITOURINARY: Denies any blood in urine or increased urinary frequency. NEUROLOGIC: Denies any numbness or tingling along the distal extremities. No seizure disorders or headaches. PSYCHIATRIC: Had depression or suidical ideation. PHYSICAL EXAM: VITAL SIGNS: 5 foot 6.5, 166 pounds. Body mass index 26.4 Vital Signs Temp 98.1 F 06/19/19 16:51 Pulse 86 06/19/19 16:51 Resp BP 123/79 06/19/19 16:51 Pulse Ox ABDOMEN: Soft, nondistended. No palpable incisional hernias. MUSCULOSKELETAL: No clubbing, cyanosis, or edema. GENERAL: Well-developed female in no acute distress. HEENT: No sclera icterus. Extraocular movements grossly intact. Moist buccal mucosa. Head is atraumatic, normocephalic. Wears hearing aid. No nasal drainage. NECK: Supple without lymphadenopathy. No JV distention. CHEST: Non-labored respirations and equal bilateral excursions. CARDIOVASCULAR: Regular rate and rhythm. Palpable 2+ radial pulses. NEUROLOGIC: No focal or lateralizing signs. PSYCH: Appropriate affect. Alert and oriented to person, place and time. SKIN: Well perfused. Good skin turgor. ASSESSMENT: 1. Morbid obesity excess calories, resolved 2. Body mass index reduced from 49.4 down to 26.4 3. Epigastric abdominal pain 4. Status post Luciano-en-Y gastric bypass. 5. Chronic lower back pain. 6. History of chronic anticoagulant therapy. 7. History of blood clotting disorder. 8. Gastrojejunal stricture. 9. Chronic pain syndrome 10. Irritable bowel syndrome PLAN: 1. She has stricture with dysphagia from history of gastrojejunal stricture. 2. Recommend upper endoscopy with dilation. 3. Recommend bariatric labs and IV hydration.
[2019-06-19 17:47] VITALS: BP 123/79; PULSE 86; TEMP 98.1; BMI 26.4
== END | disposition home or self-care (01) ==
LOC: BARWHC3 16:43
PROVIDERS: ATTEND Surgery Plastic and Reconstructive Surgery
DX: Z48.815 Encounter for surgical aftercare following surgery on the digestive system (principal); M54.5 Low back pain; K31.89 Other diseases of stomach and duodenum; K56.699 Other intestinal obstruction unspecified as to partial versus complete obstruction; G89.4 Chronic pain syndrome; K58.9 Irritable bowel syndrome, unspecified; Z98.84 Bariatric surgery status; Z86.2 Personal history of diseases of the blood and blood-forming organs and certain disorders involving the immune mechanism; Z92.29 Personal history of other drug therapy; M19.90 Unspecified osteoarthritis, unspecified site; Z83.49 Family history of other endocrine, nutritional and metabolic diseases; Z72.0 Tobacco use; Z90.49 Acquired absence of other specified parts of digestive tract; Z79.01 Long term (current) use of anticoagulants; Z79.891 Long term (current) use of opiate analgesic; Z79.899 Other long term (current) drug therapy; Z88.2 Allergy status to sulfonamides; Z88.1 Allergy status to other antibiotic agents; Z88.0 Allergy status to penicillin
CPT/HCPCS: 99211

== ENCOUNTER → 2019-06-19 | Outpatient (CLI) | payer BC ==
[2019-06-19 18:03] LABS: INR 0.9 (<1.2)
[2019-06-19 18:21] LABS: HGB 14.3 gm/dL (11.4-16.0); MCH 31.3 pg (25.0-35.0); MCHC 34.1 g/dL (31.0-37.0); MCV 91.7 fL (80.0-100.0); Mean Platelet Volume 6.4; Platelet Count 243 k/uL (150-450); RBC 4.58 m/uL (3.80-5.40); RDW 12.8 % (11.5-15.5); WBC 7.1 k/uL (3.8-10.6)
[2019-06-20 01:26] LABS: Hemoglobin A1C 5.7 % (4.0-6.0)
[2019-06-20 01:34] LABS: Ferritin 119.4 ng/mL (10.0-291.0)
[2019-06-20 02:19] LABS: % Iron Saturation 20.09 (12.00-45.00); Albumin 4.2 g/dL (3.80-4.90); Albumin/Globulin Ratio 3.23 (1.60-3.17); Anion Gap 8.9 mmol/L (4.00-12.00); Calcium 8.9 mg/dL (8.7-10.3); Carbon Dioxide 23.1 mmol/L (21.6-31.8); Chol/HDL Ratio 2.29; Folate, Serum 13.2 ng/mL; Globulin 1.3 g/dL (1.6-3.3); LDL Cholesterol,Calculated 102.2 mg/dL (0.0-131.0); Magnesium 2.2 mg/dL (1.5-2.4); Non-African American GFR(CKD) 63.8 (60.0-200.0); Phosphorus 4.8 mg/dL (2.4-5.1); Potassium 4.5 mmol/L (3.5-5.5); Total Bilirubin 0.1 mg/dL (0.3-1.2); Total Protein 5.5 g/dL (6.2-8.2); VLDL Calculation 18.8 mg/dL (5.00-40.00)
[2019-06-21 14:13] LABS: Zinc, Serum 106 ug/dL (60-130)
== END | disposition home or self-care (01) ==
LOC: LABWHC1 17:17
PROVIDERS: ATTEND Surgery Plastic and Reconstructive Surgery
DX: E66.01 Morbid (severe) obesity due to excess calories (principal); E21.1 Secondary hyperparathyroidism, not elsewhere classified; E89.1 Postprocedural hypoinsulinemia; D50.9 Iron deficiency anemia, unspecified; K90.9 Intestinal malabsorption, unspecified; E55.9 Vitamin D deficiency, unspecified; K76.9 Liver disease, unspecified; N19 Unspecified kidney failure; K50.90 Crohn's disease, unspecified, without complications
CPT/HCPCS: 36415; 80053; 80061; 82306; 82525; 82607; 82728; 82746; 83036; 83540; 83550; 83735; 83970; 84100; 84134; 84255; 84425; 84443; 84590; 84630; 85027; 85610; 85730

== ENCOUNTER 2019-06-21 11:58 | Day surgery (SDC) | payer BC ==
[2019-06-20 10:14] VITALS: BMI 25.9
--- NOTE | 2019-06-20 21:04 | P.GSHP ---
History of Present Illness H&P Date: 06/21/19 CHIEF COMPLAINT: GERD HISTORY OF PRESENT ILLNESS: The patient is a 53-year-old female who presents reports gastroesophageal reflux disease. Upper endoscopy was offered for further evaluation and management. She also presents with dehydration. PAST MEDICAL HISTORY: Please see list. PAST SURGICAL HISTORY: Please see list. MEDICATIONS: Please see list. ALLERGIES: Please see list. SOCIAL HISTORY: No illicit drug use FAMILY HISTORY: No reports of Crohn disease or ulcerative colitis. REVIEW OF ORGAN SYSTEMS: CONSTITUTIONAL: No reports of fevers or chills. GI: Denies any blood in stools or constipation. PHYSICAL EXAM: VITAL SIGNS: Stable GENERAL: Well-developed and pleasant in no acute distress. HEENT: No scleral icterus. Extraocular movements grossly intact. Moist buccal mucosa. NECK: Supple without lymphadenopathy. CHEST: Unlabored respirations. Equal bilateral excursions. CARDIOVASCULAR: Regular rate and rhythm. Distal 2+ pulses. ABDOMEN: Soft, nondistended. MUSCULOSKELETAL: No clubbing, cyanosis, or edema. ASSESSMENT: 1. Gastroesophageal reflux disease 2. Dehydration PLAN: 1. Recommend proceeding with an upper endoscopy 2. Will need fluid hydration 2 liter bolus Past Medical History Past Medical History: Asthma, Blood Disorder, Deep Vein Thrombosis (DVT), GERD/Reflux, Osteoarthritis (OA) Additional Past Medical History / Comment(s): migraines, prothrombin [id number] clotting disorder; hx stomach ulcers, gastrojejunal stricture. current Vomiting often, hiccups, nausea. History of Any Multi-Drug Resistant Organisms: None Reported Past Surgical History: Adenoidectomy, Bariatric Surgery, Cholecystectomy, Hysterectomy, Orthopedic Surgery, Tonsillectomy Additional Past Surgical History / Comment(s): gastric bypass (january 2012), mary knee arthroscopy, gastric fistula repair (2016), left shoulder rotator cuff. Colonoscopy. EGD w/ dilation 2018. Past Anesthesia/Blood Transfusion Reactions: Family History of Problems w/ Anesthesia, Motion Sickness, Postoperative Nausea & Vomiting (PONV) Additional Past Anesthesia/Blood Transfusion Reaction / Comment(s): Mother, brother have PONV. Smoking Status: Former smoker - Past Family History Mother Family Medical History: Cancer Additional Family Medical History / Comment(s): uterine cancer Father Family Medical History: Deep Vein Thrombosis (DVT) Additional Family Medical History / Comment(s): heart issues Medications and Allergies Home Medications Medication Instructions Recorded Confirmed Type Baclofen [Lioresal] 20 mg PO HS 04/28/16 06/20/19 History Topiramate [Topamax] 50 mg PO HS 04/28/16 06/20/19 History Rivaroxaban [Xarelto] 20 mg PO HS 06/30/16 06/20/19 History QUEtiapine FUMARATE [SEROquel] 25 mg PO QID PRN 09/29/16 06/20/19 History Omeprazole 40 mg PO HS 03/10/17 06/20/19 History Albuterol Inhaler [Ventolin Hfa 1 - 2 puff INHALATION Q6HR PRN 10/19/17 06/20/19 History Inhaler] Multivitamins, Thera [Multivitamin 1 tab PO DAILY 10/19/17 06/20/19 History (formulary)] Baclofen [Lioresal] 10 mg PO QAM 06/19/19 06/20/19 History Desvenlafaxine Succinate [Pristiq] 50 mg PO HS 06/19/19 06/20/19 History ZOLMitriptan [Zomig] 5 mg PO DAILY PRN 06/19/19 06/20/19 History Butalb/Acetaminophen/Caffeine 1 - 2 cap PO Q4HR PRN 06/20/19 06/20/19 History [Fioricet 50-300-40 mg Capsule] Cholecalciferol [Vitamin D3 (25 5,000 unit PO DAILY 06/20/19 06/20/19 History Mcg = 1000 Iu)] Cranberry Fruit Extract [Cranberry] 500 mg PO DAILY 06/20/19 06/20/19 History Melatonin 2 mg PO HS 06/20/19 06/20/19 History Moon-3-6-9 1 tab PO DAILY 06/20/19 History Ondansetron [Zofran] 4 mg PO Q8HR PRN 06/20/19 06/20/19 History Thiamine [Vitamin B-1] 100 mg PO DAILY 06/20/19 06/20/19 History Vitamin E (Dl,Tocopheryl Acet) 400 unit PO DAILY 06/20/19 06/20/19 History [Vitamin E] Zinc 50 mg PO DAILY 06/20/19 06/20/19 History Allergies Allergy/AdvReac Type Severity Reaction Status Date / Time erythromycin base Allergy Severe Rash/Hives Verified 06/20/19 09:54 [Erythromycin Base] Penicillins Allergy Severe Rash/Hives, Verified 06/20/19 09:54 SHORTNESS OF BREATH Sulfa (Sulfonamide Allergy Severe Rash/Hives, Verified 06/20/19 09:54 Antibiotics) SHORTNESS OF BREATH bupropion HCl [From Zyban] Allergy seizures Verified 06/20/19 09:54 sucralfate [From Carafate] Allergy Abdominal Verified 06/20/19 09:54 Pain/vomiting
[~2019-06-21 11:58] MED LIST changes: +SODIUM CHLORIDE 0.9% 2,000 ML IV ONE
[2019-06-21 12:20] VITALS: TEMP 98.1
[2019-06-21] MEDS ORDERED: LACTATED RINGERS 1,000 ML IV ONE (12:20)
[2019-06-21] MEDS ORDERED: PROPOFOL 10 MG/ML 20 ML VIAL IV ONE (12:34)
[2019-06-21] MEDS ORDERED: ONDANSETRON 4 MG/2 ML VIAL IVP ONE (12:34)
[2019-06-21 13:01] VITALS: RESP 16
[2019-06-21 13:59] VITALS: BP 121/77; PULSE 78
--- NOTE | 2019-06-21 14:20 | P.PCN ---
Date of Procedure: 06/21/19 Description of Procedure: PREOPERATIVE DIAGNOSIS: Dysphagia. Nausea with vomiting. POSTOPERATIVE DIAGNOSIS: Dysphagia.. Nausea with vomiting. Gastrojejunal stricture without chronic ulcer without perforation OPERATION: Esophagogastrojejunoscopy with balloon dilatation from 15 to 20 mm. SURGEON: Ansley Bustamante MD ANESTHESIA: MAC. INDICATIONS: The patient is a 53-year-old female who presents with a history of dysphagia including new-onset nausea and vomiting. Benefits and risks of the procedure were described. Informed consent was obtained. DESCRIPTION: The patient was brought into the endoscopy suite and laid in the left lateral decubitus position. After a timeout was confirmed, the procedure was initiated. An Olympus gastroscope was passed along the posterior oropharynx down to the distal esophagus where the squamocolumnar junction was unremarkable. The gastric pouch was entered. A gastrojejunal stricture of 15 mm was found as the adult gastroscope was 9.5 mm in size. A Doculogy balloon dilator was placed through the scope. Final insufflation up to 20 mm was performed with a total of 2 minutes. The scope was advanced up to 60 cm from the incisors into the Luciano limb. The mucosa of the gastrojejunal anastomosis was intact. However chronic gastrojejunal marginal ulcer was encountered. No full-thickness injury was encountered. The GI tract was desufflated. The patient tolerated the procedure well. FINDINGS: Stricture of approximately 15 mm encountered. Chronic gastrojejunal ulceration encountered. Successful balloon dilatation to 20 mm. RECOMMENDATIONS: Upper endoscopy as needed. Plan - Discharge Summary Discharge Rx Participant: No New Discharge Prescriptions: No Action Topiramate [Topamax] 50 mg PO HS Baclofen [Lioresal] 20 mg PO HS Rivaroxaban [Xarelto] 20 mg PO HS QUEtiapine FUMARATE [SEROquel] 25 mg PO QID PRN PRN Reason: Anxiety Omeprazole 40 mg PO HS Multivitamins, Thera [Multivitamin (formulary)] 1 tab PO DAILY Albuterol Inhaler [Ventolin Hfa Inhaler] 1 - 2 puff INHALATION Q6HR PRN PRN Reason: sob Baclofen [Lioresal] 10 mg PO QAM Desvenlafaxine Succinate [Pristiq] 50 mg PO HS ZOLMitriptan [Zomig] 5 mg PO DAILY PRN PRN Reason: Migraine Headache Camanche-3-6-9 1 tab PO DAILY Butalb/Acetaminophen/Caffeine [Fioricet 50-300-40 mg Capsule] 1 - 2 cap PO Q4HR PRN PRN Reason: Migraine Headache Cholecalciferol [Vitamin D3 (25 Mcg = 1000 Iu)] 5,000 unit PO DAILY Cranberry Fruit Extract [Cranberry] 500 mg PO DAILY Melatonin 2 mg PO HS Ondansetron [Zofran] 4 mg PO Q8HR PRN PRN Reason: Nausea Thiamine [Vitamin B-1] 100 mg PO DAILY Vitamin E (Dl,Tocopheryl Acet) [Vitamin E] 400 unit PO DAILY Zinc 50 mg PO DAILY Discharge Medication List Baclofen [Lioresal] 20 mg PO HS 04/28/16 [History] Topiramate [Topamax] 50 mg PO HS 04/28/16 [History] Rivaroxaban [Xarelto] 20 mg PO HS 06/30/16 [History] QUEtiapine FUMARATE [SEROquel] 25 mg PO QID PRN 09/29/16 [History] Omeprazole 40 mg PO HS 03/10/17 [History] Albuterol Inhaler [Ventolin Hfa Inhaler] 1 - 2 puff INHALATION Q6HR PRN 10/19/17 [History] Multivitamins, Thera [Multivitamin (formulary)] 1 tab PO DAILY 10/19/17 [History] Baclofen [Lioresal] 10 mg PO QAM 06/19/19 [History] Desvenlafaxine Succinate [Pristiq] 50 mg PO HS 06/19/19 [History] ZOLMitriptan [Zomig] 5 mg PO DAILY PRN 06/19/19 [History] Butalb/Acetaminophen/Caffeine [Fioricet 50-300-40 mg Capsule] 1 - 2 cap PO Q4HR PRN 06/20/19 [History] Cholecalciferol [Vitamin D3 (25 Mcg = 1000 Iu)] 5,000 unit PO DAILY 06/20/19 [History] Cranberry Fruit Extract [Cranberry] 500 mg PO DAILY 06/20/19 [History] Melatonin 2 mg PO HS 06/20/19 [History] Camanche-3-6-9 1 tab PO DAILY 06/20/19 [History] Ondansetron [Zofran] 4 mg PO Q8HR PRN 06/20/19 [History] Thiamine [Vitamin B-1] 100 mg PO DAILY 06/20/19 [History] Vitamin E (Dl,Tocopheryl Acet) [Vitamin E] 400 unit PO DAILY 06/20/19 [History] Zinc 50 mg PO DAILY 06/20/19 [History] [facility] [place] [place] [facility] [place] [facility] Patient Instructions/Handouts: *[facility] - (Anesthesia) Endoscopy Discharge Instructions, Esophageal Stricture (DC), Upper Endoscopy (DC), Esophageal Dilation (DC) Activity/Diet/Wound Care/Special Instructions: Soft diet today. Discharge Disposition: HOME SELF-CARE
== END 2019-06-21 14:37 | disposition home or self-care (01) ==
LOC: ORWHC2ENDO 11:58
PROVIDERS: ATTEND Surgery Plastic and Reconstructive Surgery
DX: K95.89 Other complications of other bariatric procedure (principal); J45.909 Unspecified asthma, uncomplicated; K28.7 Chronic gastrojejunal ulcer without hemorrhage or perforation; M19.90 Unspecified osteoarthritis, unspecified site; Z86.718 Personal history of other venous thrombosis and embolism; G43.909 Migraine, unspecified, not intractable, without status migrainosus; D68.9 Coagulation defect, unspecified; F32.9 Major depressive disorder, single episode, unspecified; Z90.49 Acquired absence of other specified parts of digestive tract; Z90.710 Acquired absence of both cervix and uterus; Z87.891 Personal history of nicotine dependence; Z80.49 Family history of malignant neoplasm of other genital organs; Z84.89 Family history of other specified conditions; Z79.01 Long term (current) use of anticoagulants; Z79.891 Long term (current) use of opiate analgesic; Z79.899 Other long term (current) drug therapy; Z88.1 Allergy status to other antibiotic agents; Z88.0 Allergy status to penicillin; Z88.2 Allergy status to sulfonamides; Z88.8 Allergy status to other drugs, medicaments and biological substances
CPT/HCPCS: 43245; J2405; J2704; C1726; 43249

== ENCOUNTER 2020-03-11 21:45 | Emergency (ER) | payer BC ==
[2020-03-11 21:50] VITALS: TEMP 97.4
--- NOTE | 2020-03-11 22:02 | ED ---
General Adult HPI - General Chief complaint: Recheck/Abnormal Lab/Rx Stated complaint: hypoglycemia,chest pain Time Seen by Provider: 03/11/20 21:54 Source: patient, police, EMS Mode of arrival: EMS Limitations: no limitations - History of Present Illness Initial comments: Dictation was produced using [employer] dictation software. please excuse any gr ammatical, word or spelling errors. This patient was cared for during a federal and state declared state of emergency secondary to Covid 19 Chief Complaint: 54-year-old female with hypercoagulable disorder, asthma and DVT presents after fall. History of Present Illness: 54-year-old female she was getting up due to the bathroom and all of a sudden she felt faint. She immediately passed out. Patient states that her episode of syncope was unwitnessed. She states she did hit her head. Currently patient complains of posterior head pain. Denies any neck pain. Take Xarelto for her hypercoagulable blood disorder. Patient states that after the fall she began having substernal chest pressure. She denies any cardiac history. Denies any nausea vomiting. She states she's been feeling weak all day. Currently patient does not have any chest symptoms. Only complaint at the moment is head pain. No history of seizure. Denies any incontinence to stool or urine. The ROS documented in this emergency department record has been reviewed and confirmed by me. Those systems with pertinent positive or negative responses have been documented in the HPI. All other systems are other negative and/or noncontributory. PHYSICAL EXAM: General Impression: Alert and oriented x3, not in acute distress, pale HEENT: Normocephalic atraumatic, extra-ocular movements intact, pupils equal and reactive to light bilaterally, dry mucous membranes, no lateral tongue avulsions Cardiovascular: Heart regular rate and rhythm Chest: Able to complete full sentences, no retractions, no tachypnea Abdomen: abdomen soft, non-tender, non-distended, no organomegaly Musculoskeletal: Pulses present and equal in all extremities, no peripheral edema Motor: no focal deficits noted Neurological: CN II-XII grossly intact, no focal motor or sensory deficits noted Skin: Intact with no visualized rashes Psych: Normal affect and mood ED course: 54-year-old female presents after syncope and fall. She did report hitting her head. As upon arrival are within acceptable limits. EKG is benign Laboratory investigations unremarkable. CBC, coag panel, metabolic panel is unremarkable. Patient is mild hypocalcemia secondary to hypoalbuminemia. Computed tomography scan of the head C-spine was obtained showing no acute processes. patient clear for discharge. She has no indication for syncope admission. She has no cardiac history. He is agreeable with discharge. Patient advised to increase calcium intake. EKG interpretation: Ventricular rate 79, sinus rhythm,. 144, QRS 74, QTC 435. No MN prolongation, no QTC prolongation, no ST or T-wave changes noted. Overall, this EKG is unremarkable - Related Data Home Medications Medication Instructions Recorded Confirmed Baclofen [Lioresal] 20 mg PO HS 04/28/16 06/20/19 Topiramate [Topamax] 50 mg PO HS 04/28/16 06/20/19 Rivaroxaban [Xarelto] 20 mg PO HS 06/30/16 06/20/19 QUEtiapine FUMARATE [SEROquel] 25 mg PO QID PRN 09/29/16 06/20/19 Omeprazole 40 mg PO HS 03/10/17 06/20/19 Albuterol Inhaler (Mhu) [Ventolin 1 - 2 puff INHALATION Q6HR PRN 10/19/17 06/20/19 Hfa Inhaler] Multivitamins, Thera [Multivitamin 1 tab PO DAILY 10/19/17 06/20/19 (formulary)] Baclofen [Lioresal] 10 mg PO QAM 06/19/19 06/20/19 Desvenlafaxine Succinate [Pristiq] 50 mg PO HS 06/19/19 06/20/19 ZOLMitriptan [Zomig] 5 mg PO DAILY PRN 06/19/19 06/20/19 Butalb/Acetaminophen/Caffeine 1 - 2 cap PO Q4HR PRN 06/20/19 06/20/19 [Fioricet 50-300-40 mg Capsule] Cholecalciferol [Vitamin D3 (25 5,000 unit PO DAILY 06/20/19 06/20/19 Mcg = 1000 Iu)] Cranberry Fruit Extract [Cranberry] 500 mg PO DAILY 06/20/19 06/20/19 Melatonin 2 mg PO HS 06/20/19 06/20/19 [place]-3-6-9 1 tab PO DAILY 06/20/19 Ondansetron [Zofran] 4 mg PO Q8HR PRN 06/20/19 06/20/19 Thiamine [Vitamin B-1] 100 mg PO DAILY 06/20/19 06/20/19 Vitamin E (Dl,Tocopheryl Acet) 400 unit PO DAILY 06/20/19 06/20/19 [Vitamin E] Zinc 50 mg PO DAILY 06/20/19 06/20/19 Allergies Allergy/AdvReac Type Severity Reaction Status Date / Time erythromycin base Allergy Severe Rash/Hives Verified 03/11/20 21:50 [Erythromycin Base] Penicillins Allergy Severe Rash/Hives, Verified 03/11/20 21:50 SHORTNESS OF BREATH Sulfa (Sulfonamide Allergy Severe Rash/Hives, Verified 03/11/20 21:50 Antibiotics) SHORTNESS OF BREATH bupropion HCl [From Zyban] Allergy seizures Verified 03/11/20 21:50 sucralfate [From Carafate] Allergy Abdominal Verified 03/11/20 21:50 Pain/vomiting Review of Systems ROS Statement: Those systems with pertinent positive or pertinent negative responses have been documented in the HPI. ROS Other: All systems not noted in ROS Statement are negative. 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 current Vomiting often, hiccups, nausea. History of Any Multi-Drug Resistant Organisms: None Reported Past Surgical History: Adenoidectomy, Bariatric Surgery, Cholecystectomy, Hysterectomy, Orthopedic Surgery, Tonsillectomy Additional Past Surgical History / Comment(s): gastric bypass (january 2012), mary knee arthroscopy, gastric fistula repair (2016), left shoulder rotator cuff. Colonoscopy. EGD w/ dilation 2017. Past Anesthesia/Blood Transfusion Reactions: Family History of Problems w/ Anesthesia, Motion Sickness, Postoperative Nausea & Vomiting (PONV) Additional Past Anesthesia/Blood Transfusion Reaction / Comment(s): Mother, bro ther have PONV. Past Psychological History: Anxiety, Depression Smoking Status: Never smoker Past Alcohol Use History: Occasional Past Drug Use History: None Reported - Past Family History Mother Family Medical History: Cancer Additional Family Medical History / Comment(s): uterine cancer Father Family Medical History: Deep Vein Thrombosis (DVT) Additional Family Medical History / Comment(s): heart issues General Exam Limitations: no limitations Course Vital Signs 03/11/20 03/11/20 03/11/20 21:46 22:12 22:30 Temperature 97.4 F L Pulse Rate 81 79 75 Respiratory 16 16 15 Rate Blood Pressure 105/61 115/66 O2 Sat by Pulse 98 99 97 Oximetry 03/11/20 22:40 Temperature Pulse Rate 71 Respiratory 16 Rate Blood Pressure 109/67 O2 Sat by Pulse 99 Oximetry Medical Decision Making - Lab Data Result diagrams: 03/11/20 22:07 03/11/20 22:07 Lab Results 03/11/20 03/11/20 03/11/20 Range/Units 22:07 22:07 22:07 WBC 7.7 (3.8-10.6) k/uL RBC 4.47 (3.80-5.40) m/uL Hgb 13.2 (11.4-16.0) gm/dL Hct 41.4 (34.0-46.0) % MCV 92.6 (80.0-100.0) fL MCH 29.5 (25.0-35.0) pg MCHC 31.8 (31.0-37.0) g/dL RDW 13.3 (11.5-15.5) % Plt Count 210 (150-450) k/uL Neutrophils % 42 % Lymphocytes % 39 % Monocytes % 6 % Eosinophils % 9 % Basophils % 2 % Neutrophils # 3.2 (1.3-7.7) k/uL Lymphocytes # 3.0 (1.0-4.8) k/uL Monocytes # 0.5 (0-1.0) k/uL Eosinophils # 0.7 (0-0.7) k/uL Basophils # 0.1 (0-0.2) k/uL PT 11.0 (9.0-12.0) sec INR 1.1 (<1.2) APTT 22.8 (22.0-30.0) sec Sodium 138 (137-145) mmol/L Potassium 3.6 (3.5-5.1) mmol/L Chloride 112 H (98-107) mmol/L Carbon Dioxide 22 (22-30) mmol/L Anion Gap 4 mmol/L BUN 14 (7-17) mg/dL Creatinine 0.75 (0.52-1.04) mg/dL Est GFR (CKD-EPI)AfAm >90 (>60 ml/min/1.73 sqM) Est GFR (CKD-EPI)NonAf >90 (>60 ml/min/1.73 sqM) Glucose 93 (74-99) mg/dL Calcium 8.2 L (8.4-10.2) mg/dL Magnesium 2.1 (1.6-2.3) mg/dL Total Bilirubin 0.2 (0.2-1.3) mg/dL AST 24 (14-36) U/L ALT 21 (4-34) U/L Alkaline Phosphatase 86 (38-126) U/L Total Protein 5.0 L (6.3-8.2) g/dL Albumin 3.2 L (3.5-5.0) g/dL Disposition Clinical Impression: Syncope Disposition: HOME SELF-CARE Condition: Good Is patient prescribed a controlled substance at d/c from ED?: No Referrals: Dm Morris MD [Primary Care Provider] - 1-2 days Time of Disposition: 22:47
[2020-03-11 22:26] LABS: Basophils # (A) 0.1 k/uL (0-0.2); Basophils % (A) 2 %; Eosinophils # (A) 0.7 k/uL (0-0.7); Eosinophils % (A) 9 %; HCT 41.4 % (34.0-46.0); HGB 13.2 gm/dL (11.4-16.0); Lymphocytes % (A) 39 %; MCH 29.5 pg (25.0-35.0); MCHC 31.8 g/dL (31.0-37.0); MCV 92.6 fL (80.0-100.0); Mean Platelet Volume 7.9; Monocytes # (A) 0.5 k/uL (0-1.0); Monocytes % (A) 6 %; Neutrophils # (A) 3.2 k/uL (1.3-7.7); Neutrophils % (A) 42 %; Platelet Count 210 k/uL (150-450); RBC 4.47 m/uL (3.80-5.40); RDW 13.3 % (11.5-15.5); WBC 7.7 k/uL (3.8-10.6)
[2020-03-11 22:35] LABS: ALT 21 U/L (4-34); AST 24 U/L (14-36); African American GFR (CKD) >90 (>60 ml/min/1.73 sqM); Albumin 3.2 g/dL (3.5-5.0); Alkaline Phosphatase 86 U/L (38-126); Anion Gap 4 mmol/L; Blood Urea Nitrogen 14 mg/dL (7-17); Calcium 8.2 mg/dL (8.4-10.2); Carbon Dioxide 22 mmol/L (22-30); Chloride 112 mmol/L (98-107); Glucose 93 mg/dL (74-99); Magnesium 2.1 mg/dL (1.6-2.3); Non-African American GFR(CKD) >90 (>60 ml/min/1.73 sqM); Potassium 3.6 mmol/L (3.5-5.1); Sodium 138 mmol/L (137-145); Total Bilirubin 0.2 mg/dL (0.2-1.3)
[2020-03-11 22:37] LABS: INR 1.1 (<1.2); Partial Thromboplastin Time 22.8 sec (22.0-30.0)
--- NOTE | 2020-03-11 22:41 | CT ---
EXAMINATION TYPE: CT brain cspine wo con DATE OF EXAM: 03/11/2020 COMPARISON: 04/27/2013 HISTORY: Fall, pt hit head, claims LOC. PT unable to remove earrings. CT DLP: 1348.4 mGycm Automated exposure control for dose reduction was used. Ventricles have normal size. There is no mass effect nor midline shift. There is no sign of intracran ial hemorrhage. The calvarium is intact. Cervical vertebra have fairly normal spacing and alignment. Posterior elements are intact. There is mild hypertrophic facet arthropathy. There is no cervical spi ne compression fracture. Skull base is intact. Mastoid sinuses appear normal. IMPRESSION: Negative CT scan of the brain. There is mild facet arthropathy on the right side of the mid cervical spine. No fracture seen. Brainstem and cervical spine unchanged compared to old exam.
[2020-03-11 22:49] VITALS: RESP 16
[2020-03-11 22:58] VITALS: BP 105/53; PULSE 81
== END 2020-03-11 22:58 | disposition home or self-care (01) ==
LOC: EC 21:45
DX: R55 Syncope and collapse (principal); J45.909 Unspecified asthma, uncomplicated; K21.9 Gastro-esophageal reflux disease without esophagitis; F41.9 Anxiety disorder, unspecified; F32.9 Major depressive disorder, single episode, unspecified; E83.51 Hypocalcemia; E88.09 Other disorders of plasma-protein metabolism, not elsewhere classified; Z79.01 Long term (current) use of anticoagulants; Z79.899 Other long term (current) drug therapy; Z88.0 Allergy status to penicillin; Z88.1 Allergy status to other antibiotic agents; Z88.2 Allergy status to sulfonamides; Z88.8 Allergy status to other drugs, medicaments and biological substances; Z98.84 Bariatric surgery status; Z86.718 Personal history of other venous thrombosis and embolism
CPT/HCPCS: 36415; 70450; 72125; 80053; 83735; 85025; 85610; 85730; 93005; 99285

== ENCOUNTER → 2020-04-17 | Outpatient (CLI) | payer BC ==
--- NOTE | 2020-04-17 15:49 | US ---
EXAMINATION TYPE: US carotid duplex BILAT DATE OF EXAM: 04/17/2020 COMPARISON: NONE CLINICAL HISTORY: R55 Syncope. EXAM MEASUREMENTS: RIGHT: Peak Systolic Velocity (PSV) cm/sec ----- Right CCA: 75.0 ----- Right ICA: 69.2 ----- Right ECA: 76.4 ICA/CCA ratio: 0.9 RIGHT: End Diastole cm/sec ----- Right CCA: 24.1 ----- Right ICA: 19.8 ----- Right ECA: 18.3 LEFT: Peak Systolic Velocity (PSV) cm/sec ----- Left CCA: 75.0 ----- Left ICA: 102.8 ----- Left ECA: 79.6 ICA/CCA ratio: 1.4 LEFT: End Diastole cm/sec ----- Left CCA: 33.3 ----- Left ICA: 48.8 ----- Left ECA: 19.4 VERTEBRALS (direction of flow): Right Vertebral: Antegrade Left Vertebral: Antegrade Rhythm: Normal Minimal plaque, no elevated velocities, no significant stenosis IMPRESSION: No hemodynamically significant stenosis seen in either internal carotid artery. Criteria for Assigning % of Stenosis / Diameter reduction (Estimation based on the indirect measurements of the internal carotid artery velocities (ICA PSV). 1. Normal (no stenosis)=ICA PSV < 125 cm/s: ratio < 2.0: ICA EDV<40 cm/s. 2. Less than 50% stenosis=ICA PSV < 125 cm/s: ratio < 2.0: ICA EDV<40 cm/s. 3. 50 to 69% stenosis=ICA PSV of 125 to 230 cm/s: ration 2.0 ? 4.0: ICA EDV 40-100 cm/s. 4. Greater than 70% stenosis to near occlusion= ICA PSV > 230 cm/s: ratio > 4.0: ICA EDV > 100 cm/s. 5. Near occlusion= ICA PSV velocities may be low or undetectable: variable ratio and ICA EDV. 6. Total occlusion=unable to detect flow.
[2020-04-17 16:22] LABS: Basophils # (A) 0.1 k/uL (0-0.2); Basophils % (A) 2 %; Eosinophils # (A) 0.7 k/uL (0-0.7); Eosinophils % (A) 11 %; HCT 42.1 % (34.0-46.0); HGB 13.2 gm/dL (11.4-16.0); Lymphocytes # (A) 1.7 k/uL (1.0-4.8); Lymphocytes % (A) 28 %; MCH 29.1 pg (25.0-35.0); MCHC 31.3 g/dL (31.0-37.0); MCV 92.9 fL (80.0-100.0); Mean Platelet Volume 7.4; Monocytes # (A) 0.3 k/uL (0-1.0); Monocytes % (A) 6 %; Neutrophils # (A) 3.2 k/uL (1.3-7.7); Neutrophils % (A) 52 %; Platelet Count 222 k/uL (150-450); RBC 4.53 m/uL (3.80-5.40); RDW 13.6 % (11.5-15.5); WBC 6.2 k/uL (3.8-10.6)
[2020-04-17 16:30] LABS: Magnesium 2.4 mg/dL (1.6-2.3)
[2020-04-18 03:00] LABS: Folate, Serum 13.5 ng/mL
== END | disposition home or self-care (01) ==
LOC: RADUSWWP 15:18
PROVIDERS: ATTEND Family Medicine
DX: R55 Syncope and collapse (principal); K90.9 Intestinal malabsorption, unspecified; E83.42 Hypomagnesemia; Z11.59 Encounter for screening for other viral diseases
CPT/HCPCS: 36415; 82306; 82525; 82607; 82728; 82746; 83735; 84425; 84590; 84630; 85025; 86803; 93880

== ENCOUNTER → 2021-03-31 | Outpatient (CLI) | payer BC ==
--- NOTE | 2021-03-31 11:09 | CT ---
EXAMINATION TYPE: CT abdomen pelvis wo con DATE OF EXAM: 03/31/2021 COMPARISON: 04/27/2013 HISTORY: Lt flank pain, gross hematuria CT DLP: 483.5 mGycm Automated exposure control for dose reduction was used. TECHNIQUE: Helical acquisition of images was performed from the lung bases through the pelvis. FINDINGS: LUNG BASES: No significant abnormality is appreciated. LIVER/GB: No significant abnormality is appreciated. Postcholecystectomy changes noted. PANCREAS: No significant abnormality is seen. SPLEEN: Tiny punctate splenic calcifications noted likely related to tiny. ADRENALS: No significant abnormality is seen. KIDNEYS: No significant abnormality is seen. ADENOPATHY: None visualized. OSSEOUS STRUCTURES: Mild SI joint arthropathy. Hypertrophic mild degenerative changes spine.. BOWEL: Post gastric surgery noted. Appendix normal. Bowel gas pattern nonspecific correlate for cons tipation. No obstruction OTHER: There is a small amount of fluid within the left lower quadrant adjacent to the iliac vasculat ure which is nonspecific. IMPRESSION: 1. There is a trace amount of fluid within the left lower quadrant which is not. No surrounding bowel wall thickening. 2. Correlate for constipation.
== END | disposition home or self-care (01) ==
LOC: RADCTMAIN 10:34
PROVIDERS: ATTEND Nurse Practitioner Adult Health
DX: R10.9 Unspecified abdominal pain (principal); R31.0 Gross hematuria
CPT/HCPCS: 74176

== ENCOUNTER 2024-06-28 20:50 | Inpatient (IN) | payer BC ==
[2024-06-28 21:43] LABS: ALT 19 U/L (4-34); AST 30 U/L (14-36); African American GFR (CKD) 81 (>60 ml/min/1.73 sqM); Albumin 3.3 g/dL (3.5-5.0); Alcohol 49 mg/dL; Alkaline Phosphatase 76 U/L (38-126); Anion Gap 9 mmol/L; Blood Urea Nitrogen 13 mg/dL (7-17); Carbon Dioxide 15 mmol/L (22-30); Chloride 98 mmol/L (98-107); Glucose 93 mg/dL (74-99); Non-African American GFR(CKD) 71 (>60 ml/min/1.73 sqM); Potassium 3.5 mmol/L (3.5-5.1); Sodium 122 mmol/L (137-145); Total Bilirubin 0.2 mg/dL (0.2-1.3); Total Protein 5.1 g/dL (6.3-8.2)
--- NOTE | 2024-06-28 21:43 | ED ---
General Adult HPI - General Chief complaint: Weakness Stated complaint: weakness Time Seen by Provider: 06/28/24 21:00 Source: EMS Mode of arrival: EMS Limitations: no limitations - History of Present Illness Initial comments: This patient is a 58-year-old woman brought by ambulance for evaluation of altered mental status. Patient's family had called EMS after they found her very somnolent in their hot tub at home. They checked on her because they had not seen her in between 60 and 90 minutes. The patient had taken evening dose of melatonin, sleeping pill, and also had an alcoholic beverage prior to going into the hot tub. On arrival, the patient does not have complaints. She denies dyspnea, chest pain, headache, back or abdominal pain. She was not aware EMS had been called and was initially uncertain why she was here. -: minutes(s) Severity scale (1-10): 0 Consistency: constant Improves with: none Worsens with: none Associated Symptoms: confusion Treatments Prior to Arrival: none - Related Data Home Medications Medication Instructions Recorded Confirmed Topiramate [Topamax] 50 mg PO HS 04/28/16 06/20/19 Rivaroxaban [Xarelto] 20 mg PO HS 06/30/16 06/20/19 QUEtiapine FUMARATE [SEROquel] 25 mg PO QID PRN 09/29/16 06/20/19 Omeprazole 40 mg PO HS 03/10/17 06/20/19 Albuterol Inhaler [Ventolin Hfa 1 - 2 puff INHALATION Q6HR PRN 10/19/17 06/20/19 Inhaler] Multivitamins, Thera [Multivitamin 1 tab PO DAILY 10/19/17 06/20/19 (formulary)] Desvenlafaxine Succinate [Pristiq] 50 mg PO HS 06/19/19 06/20/19 ZOLMitriptan [Zomig] 5 mg PO DAILY PRN 06/19/19 06/20/19 Butalb/Acetaminophen/Caffeine 1 - 2 cap PO Q4HR PRN 06/20/19 06/20/19 [Fioricet 50-300-40 mg Capsule] Cholecalciferol [Vitamin D3 (25 5,000 unit PO DAILY 06/20/19 06/20/19 Mcg = 1000 Iu)] Cranberry Fruit Extract [Cranberry] 500 mg PO DAILY 06/20/19 06/20/19 Melatonin 2 mg PO HS 06/20/19 06/20/19 [place]-3-6-9 1 tab PO DAILY 06/20/19 Ondansetron [Zofran] 4 mg PO Q8HR PRN 06/20/19 06/20/19 Thiamine [Vitamin B-1] 100 mg PO DAILY 06/20/19 06/20/19 Vitamin E (Dl,Tocopheryl Acet) 400 unit PO DAILY 06/20/19 06/20/19 [Vitamin E (400 Iu = 180 mg)] Zinc 50 mg PO DAILY 06/20/19 06/20/19 Allergies Allergy/AdvReac Type Severity Reaction Status Date / Time erythromycin base Allergy Severe Rash/Hives Verified 06/28/24 21:04 [Erythromycin Base] Penicillins Allergy Severe Rash/Hives, Verified 06/28/24 21:04 SHORTNESS OF BREATH Sulfa (Sulfonamide Allergy Severe Rash/Hives, Verified 06/28/24 21:04 Antibiotics) SHORTNESS OF BREATH bupropion HCl [From Zyban] Allergy seizures Verified 06/28/24 21:04 sucralfate [From Carafate] Allergy Abdominal Verified 06/28/24 21:04 Pain/vomiting Review of Systems ROS Statement: Those systems with pertinent positive or pertinent negative responses have been documented in the HPI. ROS Other: All systems not noted in ROS Statement are negative. Constitutional: Denies: fever, chills, weakness Eyes: Denies: vision change Respiratory: Denies: cough, dyspnea Cardiovascular: Denies: chest pain, palpitations, edema Gastrointestinal: Denies: abdominal pain, vomiting, diarrhea Genitourinary: Denies: dysuria, hematuria Musculoskeletal: Denies: back pain Skin: Denies: rash Neurological: Reports: confusion. 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 current Vomiting often, hiccups, nausea. History of Any Multi-Drug Resistant Organisms: None Reported Past Surgical History: Adenoidectomy, Bariatric Surgery, Cholecystectomy, Hysterectomy, Orthopedic Surgery, Tonsillectomy Additional Past Surgical History / Comment(s): gastric bypass (january 2012), mary knee arthroscopy, gastric fistula repair (2016), left shoulder rotator cuff. Colonoscopy. EGD w/ dilation 2018. Past Anesthesia/Blood Transfusion Reactions: Family History of Problems w/ Anesthesia, Motion Sickness, Postoperative Nausea & Vomiting (PONV) Additional Past Anesthesia/Blood Transfusion Reaction / Comment(s): Mother, brother have PONV. Past Psychological History: Anxiety, Depression Smoking Status: Never smoker Past Alcohol Use History: Occasional Past Drug Use History: None Reported - Past Family History Mother Family Medical History: Cancer Additional Family Medical History / Comment(s): uterine cancer Father Family Medical History: Deep Vein Thrombosis (DVT) Additional Family Medical History / Comment(s): heart issues General Exam Limitations: no limitations General appearance: in no apparent distress, other (Patient does appear very somnolent but is aroused to voice.) Head exam: Present: atraumatic, normocephalic Eye exam: Present: normal appearance, nystagmus. Absent: PERRL, EOMI, scleral icterus, conjunctival injection ENT exam: Present: mucous membranes dry Neck exam: Present: normal inspection, full ROM. Absent: tenderness, meningismus Respiratory exam: Present: normal lung sounds bilaterally. Absent: respiratory distress, wheezes, rales, rhonchi, stridor, accessory muscle use Cardiovascular Exam: Present: regular rate, normal rhythm, normal heart sounds. Absent: systolic murmur, diastolic murmur, rubs, gallop GI/Abdominal exam: Present: soft. Absent: distended, tenderness, guarding, rebound, rigid, mass Extremities exam: Present: normal inspection, normal capillary refill. Absent: pedal edema, calf tenderness Back exam: Present: normal inspection, full ROM Neurological exam: Present: oriented X3, CN II-XII intact, other (Somnolent but arouses to voice). Absent: motor sensory deficit Skin exam: Present: warm, dry, intact, normal color. Absent: rash Course Vital Signs 06/28/24 06/28/24 06/28/24 20:52 22:10 23:12 Temperature 97.3 F L 97.4 F L Pulse Rate 102 H 97 92 Respiratory 14 17 16 Rate Blood Pressure 103/70 117/68 105/70 O2 Sat by Pulse 98 98 95 Oximetry EKG Findings - EKG Results: EKG: interpreted by ERMD, sinus rhythm (Rate 92 bpm), normal axis, normal QRS - Blocks, [place], Hypertrophy, ST Abn: Repolarization changes or abnormalities: nonspecific abnormality, ST segment, an d/or T wave Medical Decision Making - Medical Decision Making The patient had CT scan of the brain that I interpreted as negative for acute bony injury. Negative for acute intracranial hemorrhage or mass effect Was pt. sent in by a medical professional or institution (KENNETH Gould, [employer]OR, urgent care, hospital, or shelter...) When possible be specific @ -[No] Did you speak to anyone other than the patient for history (EMS, parent, family, police, friend...)? What history was obtained from this source @ -[No] Did you review nursing and triage notes (agree or disagree)? Why? @ -[I reviewed and agree with nursing and triage notes] Were old charts reviewed (outside hosp., previous admission, EMS record, old EKG, old radiological studies, urgent care reports/EKG's, shelter records)? Report findings @ -[No old charts were reviewed] Differential Diagnosis (chest pain, altered mental status, abdominal pain women, abdominal pain men, vaginal bleeding, weakness, fever, dyspnea, syncope, headache, dizziness, GI bleed, back pain, seizure, CVA, palpatations, mental health, musculoskeletal)? @ -[Differential Altered Mental Status: Hypoglycemia, DKA, hypercapnia, ETOH, overdose, CO poisoning, trauma, myxedema coma, HTN encephalopathy, infection, encephalitis, psychosis, intercranial hemorrhage, hepatic encephalopathy, meningitis, CVA, this is not meant to be an all-inclusive list EKG interpreted by me (3pts min.). @ -[I interpreted as above] X-rays interpreted by me (1pt min.). @ -[None done] CT interpreted by me (1pt min.). @ -[I interpreted as above U/S interpreted by me (1pt. min.). @ -[None done] What testing was considered but not performed or refused? (CT, X-rays, U/S, labs)? Why? @ -[None] What meds were considered but not given or refused? Why? @ -[None] Did you discuss the management of the patient with other professionals (professionals i.e. Dr., PA, [employer]VISOR, lab, RT, psych nurse, social services specialist, clinical trial specialist, teacher, commercial credit officer, caser)? Give summary @ -[No] Was smoking cessation discussed for >3mins.? @ -[No] Was critical care preformed (if so, how long)? @ -[No] Were there social determinants of health that impacted care today? How? (Homelessness, low income, unemployed, alcoholism, drug addiction, transportation, low edu. Level, literacy, decrease access to med. care, half-way, rehab)? @ -[No] Was there de-escalation of care discussed even if they declined (Discuss DNR or withdrawal of care, Hospice)? DNR status @ -[No] What co-morbidities impacted this encounter? (DM, HTN, Smoking, COPD, CAD, Cancer, CVA, ARF, Chemo, Hep., AIDS, mental health diagnosis, sleep apnea, morbid obesity)? @ -[None] Was patient admitted / discharged? Hospital course, mention meds given and route, prescriptions, significant lab abnormalities, going to OR and other pertinent info. @ -[Patient is a 58-year-old woman brought to have evaluation after she had been found with altered mental status in her hot tub. The patient's workup is remarkable for hyponatremia as well as drug screen being positive for a number of substances capable of producing this clinical state. The patient is admitted to have sodium replacement and further evaluation and treatment. Undiagnosed new problem with uncertain prognosis? @ -[No] Drug Therapy requiring intensive monitoring for toxicity (Heparin, Nitro, In sulin, Cardizem)? @ -[No] Were any procedures done? @ -[No] Diagnosis/symptom? @ -[Acute altered mental status Acute hyponatremia Acute polypharmacy Acute, or Chronic, or Acute on Chronic? @ -[Acute Uncomplicated (without systemic symptoms) or Complicated (systemic symptoms)? @ -[Uncomplicated Side effects of treatment? @ -[No] Exacerbation, Progression, or Severe Exacerbation? @ -[No] Poses a threat to life or bodily function? How? (Chest pain, [place], NH, pneumonia, PE, COPD, DKA, ARF, appy, cholecystitis, CVA, Diverticulitis, Homicidal, Suicidal, threat to staff... and all critical care pts) @ -Low risk All treatments are based on ideal body weight as in ED triage - Lab Data Result diagrams: 06/28/24 21:19 06/29/24 11:30 Lab Results 06/28/24 06/28/24 06/28/24 Range/Units 21:09 21:19 21:19 WBC 5.8 (3.8-10.6) k/uL RBC 3.77 L (3.80-5.40) m/uL Hgb 11.1 L (11.4-16.0) gm/dL Hct 34.3 (34.0-46.0) % MCV 90.8 (80.0-100.0) fL MCH 29.4 (25.0-35.0) pg MCHC 32.4 (31.0-37.0) g/dL RDW 13.9 (11.5-15.5) % Plt Count 212 (150-450) k/uL MPV 7.7 Neutrophils % 73 % Lymphocytes % 16 % Monocytes % 4 % Eosinophils % 4 % Basophils % 1 % Neutrophils # 4.3 (1.3-7.7) k/uL Lymphocytes # 0.9 L (1.0-4.8) k/uL Monocytes # 0.2 (0-1.0) k/uL Eosinophils # 0.2 (0-0.7) k/uL Basophils # 0.1 (0-0.2) k/uL Sodium 122 L (137-145) mmol/L Potassium 3.5 (3.5-5.1) mmol/L Chloride 98 (98-107) mmol/L Carbon Dioxide 15 L (22-30) mmol/L Anion Gap 9 mmol/L BUN 13 (7-17) mg/dL Creatinine 0.90 (0.52-1.04) mg/dL Est GFR (CKD-EPI)AfAm 81 (>60 ml/min/1.73 sqM) Est GFR (CKD-EPI)NonAf 71 (>60 ml/min/1.73 sqM) Glucose 93 (74-99) mg/dL Osmolality 277 (275-295) mOsm/kg Plasma Lactic Acid Mac (0.7-2.0) mmol/L Calcium 8.0 L (8.4-10.2) mg/dL Total Bilirubin 0.2 (0.2-1.3) mg/dL AST 30 (14-36) U/L ALT 19 (4-34) U/L Alkaline Phosphatase 76 (38-126) U/L Troponin I (0.000-0.034) ng/mL Total Protein 5.1 L (6.3-8.2) g/dL Albumin 3.3 L (3.5-5.0) g/dL Serum Alcohol 49 mg/dL 06/28/24 06/28/24 Range/Units 21:19 21:19 WBC (3.8-10.6) k/uL RBC (3.80-5.40) m/uL Hgb (11.4-16.0) gm/dL Hct (34.0-46.0) % MCV (80.0-100.0) fL MCH (25.0-35.0) pg MCHC (31.0-37.0) g/dL RDW (11.5-15.5) % Plt Count (150-450) k/uL MPV Neutrophils % % Lymphocytes % % Monocytes % % Eosinophils % % Basophils % % Neutrophils # (1.3-7.7) k/uL Lymphocytes # (1.0-4.8) k/uL Monocytes # (0-1.0) k/uL Eosinophils # (0-0.7) k/uL Basophils # (0-0.2) k/uL Sodium (137-145) mmol/L Potassium (3.5-5.1) mmol/L Chloride (98-107) mmol/L Carbon Dioxide (22-30) mmol/L Anion Gap mmol/L BUN (7-17) mg/dL Creatinine (0.52-1.04) mg/dL Est GFR (CKD-EPI)AfAm (>60 ml/min/1.73 sqM) Est GFR (CKD-EPI)NonAf (>60 ml/min/1.73 sqM) Glucose (74-99) mg/dL Osmolality (275-295) mOsm/kg Plasma Lactic Acid Mac 1.7 (0.7-2.0) mmol/L Calcium (8.4-10.2) mg/dL Total Bilirubin (0.2-1.3) mg/dL AST (14-36) U/L ALT (4-34) U/L Alkaline Phosphatase (38-126) U/L Troponin I <0.012 (0.000-0.034) ng/mL Total Protein (6.3-8.2) g/dL Albumin (3.5-5.0) g/dL Serum Alcohol mg/dL Disposition Clinical Impression: Altered mental status, Hyponatremia Disposition: ADMITTED IP TO THIS HOSP Condition: Stable Is patient prescribed a controlled substance at d/c from ED?: No
[2024-06-28 21:45] LABS: Basophils # (A) 0.1 k/uL (0-0.2); Basophils % (A) 1 %; Eosinophils # (A) 0.2 k/uL (0-0.7); Eosinophils % (A) 4 %; HCT 34.3 % (34.0-46.0); HGB 11.1 gm/dL (11.4-16.0); Lymphocytes # (A) 0.9 k/uL (1.0-4.8); Lymphocytes % (A) 16 %; MCH 29.4 pg (25.0-35.0); MCHC 32.4 g/dL (31.0-37.0); MCV 90.8 fL (80.0-100.0); Mean Platelet Volume 7.7; Monocytes # (A) 0.2 k/uL (0-1.0); Monocytes % (A) 4 %; Neutrophils # (A) 4.3 k/uL (1.3-7.7); Neutrophils % (A) 73 %; Platelet Count 212 k/uL (150-450); RBC 3.77 m/uL (3.80-5.40); RDW 13.9 % (11.5-15.5); WBC 5.8 k/uL (3.8-10.6)
--- NOTE | 2024-06-28 21:53 | XR ---
EXAMINATION TYPE: XR chest 2V DATE OF EXAM: 06/28/2024 9:39 PM COMPARISON: Chest radiographs from 04/27/2013 CLINICAL INDICATION: Female, 58 years old with history of Weakness; TECHNIQUE: XR chest 2V Frontal and lateral views of the chest. FINDINGS: Lungs/Pleura: There is no evidence of pleural effusion, focal consolidation, or pneumothorax. Pulmonary vascularity: Unremarkable. Heart/mediastinum: Cardiomediastinal silhouette is unremarkable. Musculoskeletal: No acute osseous pathology. IMPRESSION: No acute cardiopulmonary disease/process. [facility], , 06/28/2024 9:51 PM
--- NOTE | 2024-06-28 22:27 | CT ---
EXAMINATION TYPE: CT brain wo con DATE OF EXAM: 06/28/2024 HISTORY: AMS. CT DLP: 1096 mGycm. Automated Exposure Control for Dose Reduction was Utilized. TECHNIQUE: CT scan of the head is performed without contrast. COMPARISON: CT brain March 11, 2020. FINDINGS: There is no acute intracranial hemorrhage or midline shift identified. Ventricles and sul ci within normal limits in size for patient's age. [place]-white matter differentiation is maintained. The globes are intact and the visualized sinuses are clear. IMPRESSION: No acute intracranial hemorrhage or midline shift. No significant change from most recen t prior CT. [facility], , 06/28/2024 10:24 PM
[2024-06-28] MEDS ORDERED: NALOXONE 0.4 MG/ML 1 ML VIAL IV PRN (22:48)
[2024-06-28] MEDS: SODIUM CHLORIDE 0.9% 1,000 ML IV SCH (22:57)
--- NOTE | 2024-06-29 00:56 | P.HPIM ---
History of Present Illness H&P Date: 06/28/24 Chief Complaint: Altered mental status Patient is a 58 year old female with asthma, GERD, Insomnia, seizure disorder, history of DVT on blood thinner at home presented to the ED with altered mental status. Patient mentions that she usually takes a sleeping pill, with melatonin and [place] at night time and her doctor had recently advised her to double the dose of her sleeping pill. The family reports that the patient had taken 2 melatonin gummies, 2 sleeping pills as well as alcoholic beverage before going into the hot tub earlier today. The family checked up on her when they had not seen her in 60-90 minutues as she usually is in the hot tub for only 20 minutes. The patient was found to be somnolent in the hot tub with her chin in the water. At that point EMS was called. Upon arrival to the ED, the patient wasn't aware about EMS and didn't know why she was she at the hospital. She denied any acute complaints. The family states she had a similar episode previously but at the time she was also found to have jerking movements of her extremities and she was diagnosed with epilepsy. At the time of this interview, the patient was drowsy but is aroused to voice and is able to maintain a conversation and answer questions. She reports drinking 2 drinks per day, 3-4 days in a week. Moreover the patient mentions having a DVT 10 years ago and a history of inheri katarzyna thrombophilia for which she is on blood thinner at home. She also had a recent back fusion surgery in February 2024 and since then she reports having weaknessin her back and left leg that has also caused her to sustain a fall two months ago. At the time she didn't hit her head or lost consciousness and did not get a medical evaluation. She does report having intermittent headache that she attributes to migraines. Denies fever, chills, shortness of breath, cough, chest pain, palpitations, abd ominal pain, nausea, vomiting, hematuria, dysuria, hematochezia, melena, headache, slurred speech, numbness, tingling. ED documentation reviewed. In the ED patient was treated with 0.9 normal saline. Vitals on admission T 97.3 F, MN 102 bpm, RR 14, BP 103/70, O2 sat 90% on room air EKG independently interpreted as sinus rhyth, rate 92 bpm, QTc 401 ms Chest x-ray shows no acute cardiopulmonary disease/process. Brain CT shows no acute intracranial hemorrhage or midline shift, no significant change from most recent prior CT Labs on admission show WBC 5.8, Hb 11.1, MCV 90.8, Na 122, bicarb 15, lactic acid 1.7, total protein 5.1, albumin 3.3 Troponin I <0.012 Serum alcohol is 49 Review of systems: Pertinent positives and negatives as discussed in HPI, a complete review of systems was performed and all other systems are negative. Social history: Tobacco: Former smoker Alcohol: 2 drinks per day, 3-4 days in a week, Recreational drugs: Denies use Travel: No recent travel history Sick contacts: None Physical examination: Vital signs reviewed General: drowsy, nontoxic, no distress, appears at stated age, normal bmi Derm: warm, dry, intact Head: atraumatic, normocephalic, symmetric Eyes: EOMI, anicteric sclera Cardiovascular: S1 S2 reg, no murmur Lungs: CTA bilateral, no rhonchi, no rales, no accessory muscle use Abdominal: soft, non-tender to palpation Extremities: Non-pitting edema, No cyanosis, clubbing Neuro: Drowsy but aroused to voice, Alert, Oriented,strength 5/5 in all 4 extremities Psych: well appearing, appropriate affect Assessment/Plan: Patient is a 58 year old female with asthma, GERD, Insomnia, seizure disorder, history of DVT on blood thinner at home presented to the ED with altered mental status after taking 2 melatonin gummies, 2 sleeping pills and an alcoholic beverage. She has been admitted for monitoring and further workup and management of the same. Active: #. Acute metabolic encephalopathy, likely secondary to hypnotics vs alcohol vs electrolyte imbalance #. Non anion gap metabolic acidosis #. Hyponatremia Serum alcohol elevated at 49, Low Na 122, Low bicarb [address] shows no acute intracranial hemorrhage or midline shift, no significant change from most recent prior CT Obtain urine drug screen, ABG, serum osmolality and urine osmolality, urine sodium and urine creatinine 0.9 normal saline at 110 ml/hr Monitor BMP q4 hr #. Normocytic Anemia Low Hb 11.1, Normal MCV 90.8 Monitor CBC no reported bleeding #. Hypoalbuminemia, unchanged from baseline Low albumin 3.3 Monitor CMP Chronic: #. History of DVT 10 years ago #. History of Inherited Thrombophilia Continue home med Rivaroxaban 20 mg PO HS #. History of seizure disorder #. Asthma, not in acute exacerbation #. History of migraine headache #. Anxiety/Depression Currently on Topiramate 50 mg PO HS Resume meds once confirmed by pharmacy seizure precautions #. GERD Pantoprazole 40 mg PO daily F: E: Replete as required N: Heart healthy diet A: Ambulatory DVT prophylaxis: Rivaroxaban 20 mg PO daily and SCD GI prophylaxis: Pantoprazole 40 mg PO daily The patient is admitted with an anticipated less than 2 midnight stay for evaluation of altered mental status CODE STATUS: FULL CODE Discussed with: Patient and family Anticipated discharge place: Home I have seen and evaluated the patient today. I Discussed the case with the resident and agree with the resident's findings I edited the assessment and pl an as necessary as documented in the resident's note. Past Medical History Past Medical History: Asthma, Blood Disorder, Deep Vein Thrombosis (DVT), GERD/Reflux, Osteoarthritis (OA) Additional Past Medical History / Comment(s): migraines, prothrombin [id number] clotting disorder; hx stomach ulcers, gastrojejunal stricture. current Vomiting often, hiccups, nausea. History of Any Multi-Drug Resistant Organisms: None Reported Past Surgical History: Adenoidectomy, Bariatric Surgery, Cholecystectomy, Hysterectomy, Orthopedic Surgery, Tonsillectomy Additional Past Surgical History / Comment(s): gastric bypass (january 2012), mary knee arthroscopy, gastric fistula repair (2016), left shoulder rotator cuff. Colonoscopy. EGD w/ dilation 2017. Past Anesthesia/Blood Transfusion Reactions: Family History of Problems w/ Anesthesia, Motion Sickness, Postoperative Nausea & Vomiting (PONV) Additional Past Anesthesia/Blood Transfusion Reaction / Comment(s): Mother, brother have PONV. Past Psychological History: Anxiety, Depression Smoking Status: Never smoker Past Alcohol Use History: Occasional Past Drug Use History: None Reported - Past Family History Mother Family Medical History: Cancer Additional Family Medical History / Comment(s): uterine cancer Father Family Medical History: Deep Vein Thrombosis (DVT) Additional Family Medical History / Comment(s): heart issues Medications and Allergies Home Medications Medication Instructions Recorded Confirmed Type Baclofen [Lioresal] 20 mg PO HS 04/28/16 06/20/19 History Topiramate [Topamax] 50 mg PO HS 04/28/16 06/20/19 History Rivaroxaban [Xarelto] 20 mg PO HS 06/30/16 06/20/19 History QUEtiapine FUMARATE [SEROquel] 25 mg PO QID PRN 09/29/16 06/20/19 History Omeprazole 40 mg PO HS 03/10/17 06/20/19 History Albuterol Inhaler [Ventolin Hfa 1 - 2 puff INHALATION Q6HR PRN 10/19/17 06/20/19 History Inhaler] Multivitamins, Thera [Multivitamin 1 tab PO DAILY 10/19/17 06/20/19 History (formulary)] Baclofen [Lioresal] 10 mg PO QAM 06/19/19 06/20/19 History Desvenlafaxine Succinate [Pristiq] 50 mg PO HS 06/19/19 06/20/19 History ZOLMitriptan [Zomig] 5 mg PO DAILY PRN 06/19/19 06/20/19 History Butalb/Acetaminophen/Caffeine 1 - 2 cap PO Q4HR PRN 06/20/19 06/20/19 History [Fioricet 50-300-40 mg Capsule] Cholecalciferol [Vitamin D3 (25 5,000 unit PO DAILY 06/20/19 06/20/19 History Mcg = 1000 Iu)] Cranberry Fruit Extract [Cranberry] 500 mg PO DAILY 06/20/19 06/20/19 History Melatonin 2 mg PO HS 06/20/19 06/20/19 History [place]-3-6-9 1 tab PO DAILY 06/20/19 History Ondansetron [Zofran] 4 mg PO Q8HR PRN 06/20/19 06/20/19 History Thiamine [Vitamin B-1] 100 mg PO DAILY 06/20/19 06/20/19 History Vitamin E (Dl,Tocopheryl Acet) 400 unit PO DAILY 06/20/19 06/20/19 History [Vitamin E] Zinc 50 mg PO DAILY 06/20/19 06/20/19 History Allergies Allergy/AdvReac Type Severity Reaction Status Date / Time erythromycin base Allergy Severe Rash/Hives Verified 06/28/24 21:04 [Erythromycin Base] Penicillins Allergy Severe Rash/Hives, Verified 06/28/24 21:04 SHORTNESS OF BREATH Sulfa (Sulfonamide Allergy Severe Rash/Hives, Verified 06/28/24 21:04 Antibiotics) SHORTNESS OF BREATH bupropion HCl [From Zyban] Allergy seizures Verified 06/28/24 21:04 sucralfate [From Carafate] Allergy Abdominal Verified 06/28/24 21:04 Pain/vomiting Physical Exam Vitals: Vital Signs Temp Pulse Resp BP Pulse Ox 06/28/24 22:10 97 17 117/68 98 06/28/24 20:52 97.3 F L 102 H 14 103/70 98 Intake and Output 06/28/24 06/28/24 06/28/24 06:59 14:59 22:59 Other: Weight 65.771 kg Results CBC & Chem 7: 06/28/24 21:19 06/28/24 21:19 Labs: Abnormal Lab Results - Last 24 Hours (Table) 06/28/24 06/28/24 Range/Units 21:19 21:19 RBC 3.77 L (3.80-5.40) m/uL Hgb 11.1 L (11.4-16.0) gm/dL Lymphocytes # 0.9 L (1.0-4.8) k/uL Sodium 122 L (137-145) mmol/L Carbon Dioxide 15 L (22-30) mmol/L Calcium 8.0 L (8.4-10.2) mg/dL Total Protein 5.1 L (6.3-8.2) g/dL Albumin 3.3 L (3.5-5.0) g/dL
[2024-06-29 01:13] LABS: Amphetamine Screen,Urine Not Detected (NotDetected); Barbiturate Screen,Urine Detected (NotDetected); Benzodiazepines Screen,Urine Not Detected (NotDetected); Cocaine Screen,Urine Not Detected (NotDetected); Methadone Screen, Urine Not Detected (NotDetected); Opiate Screen,Urine Detected (NotDetected); Oxycodone Screen, Urine Not Detected (NotDetected); Phencyclidine Screen,Urine Not Detected (NotDetected); Tricyclic Antidepressant,Urine Detected (NotDetected); Urn Cannabinoid Scrn Not Detected (NotDetected)
[2024-06-29 08:16] VITALS: BP 128/74; PULSE 92; RESP 15; TEMP 98
[2024-06-29] MEDS: RIVAROXABAN 20 MG TAB PO SCH (08:45)
[2024-06-29 09:29] LABS: Blood Urea Nitrogen 12.4 mg/dL (9.0-27.0); Calcium 8.1 mg/dL (8.7-10.3); Carbon Dioxide 19.8 mmol/L (21.6-31.8); Chloride 106 mmol/L (96-109); Glucose 93 mg/dL (70-110); Sodium 136 mmol/L (135-145)
[2024-06-29 12:42] LABS: African American GFR (CKD) >90 (>60 ml/min/1.73 sqM); Anion Gap 3 mmol/L; Blood Urea Nitrogen 10 mg/dL (7-17); Calcium 8.3 mg/dL (8.4-10.2); Carbon Dioxide 24 mmol/L (22-30); Chloride 108 mmol/L (98-107); Glucose 87 mg/dL (74-99); Non-African American GFR(CKD) 90 (>60 ml/min/1.73 sqM); Sodium 135 mmol/L (137-145)
--- NOTE | 2024-06-29 13:20 | P.DS ---
Providers Date of admission: 06/28/24 22:50 Expected date of discharge: 06/29/24 Attending physician: Minh Polanco MD Primary care physician: Dm Morris [place] [facility] Course: Hospital Course: Patient is a 58-year-old female with past medical history that includes history of DVT on anticoagulation with rivaroxaban, seizure disorder, asthma, insomnia, GERD was brought to the emergency department via EMS due to somnolence and altered mental status. Patient mentions that she usually takes a sleeping pill, with melatonin and [place] at night time and her doctor had recently advised her to double the dose of her sleeping pill. The family reports that the patient had taken 2 melatonin gummies, 2 sleeping pills as well as alcoholic beverage before going into the hot tub earlier today. The family checked up on her when they had not seen her in 60-90 minutues as she usually is in the hot tub for only 20 minutes. The patient was found to be somnolent in the hot tub with her chin in the water. At that point EMS was called. Upon arrival to the ED, the patient wasn't aware about EMS and didn't know why she was she at the hospital. She denied any acute complaints. The family states she had a similar episode previously but at the time she was also found to have jerking movements of her extremities and she was diagnosed with epilepsy. At the time of this interview, the patient was drowsy but is aroused to voice and is able to maintain a conversation and answer questions. She reports drinking 2 drinks per day, 3-4 days per week. 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 She also had a recent back fusion surgery in February 2024 and since then she reports having weakness in her back and left leg that has also caused her to sustain a fall two months ago. At the time she didn't hit her head or lost consciousness and did not get a medical evaluation. She does report having intermittent headache that she attributes to migraines. Initial workup included: Vitals on admission T 97.3 F, GA 102 bpm, RR 14, BP 103/70, O2 sat 90% on room air; EKG independently interpreted as sinus rhyth, rate 92 bpm, QTc 401 ms; chest x-ray shows no acute cardiopulmonary disease/process; brain CT shows no acute intracranial hemorrhage or midline shift, no significant change from most recent prior CT; labs on admission show WBC 5.8, Hb 11.1, MCV 90.8, Na 122, bicarb 15, lactic acid 1.7, total protein 5.1, albumin 3.3, troponin I <0.012, serum alcohol is 49. Denies fever, chills, shortness of breath, cough, chest pain, palpitations, abdominal pain, nausea, vomiting, hematuria, dysuria, hematochezia, melena, headache, slurred speech, numbness, tingling. All symptoms have resolved at this time. Hyponatremia improved with IV fluids. Sodium had corrected at a quick weight. Patient was kept in the hospital for another sodium level check, and it remained stable. Patient has neurologically intact. Baclofen discontinued at the time of discharge. Patient is medically stable for discharge. Final Diagnosis: #. Acute encephalopathy, secondary to sedatives versus alcohol versus electrolyte imbalance. Resolved. #. Non-anion gap metabolic acidosis. Resolved. #. Hypovolemic hyponatremia. Resolved. #. Seizure disorder #. Asthma, not in acute exacerbation #. History of migraines #. Normocytic anemia, no acute bleeding #. Hypoalbuminemia, unchanged from baseline #. GERD Physical examination: Vital signs reviewed General: Nontoxic, no distress, appears stated age, well-appearing Derm: Warm, dry, intact Head: Atraumatic, normocephalic, symmetric Eyes: EOMI, anicteric sclera Mouth: No lip lesion, mucus membranes moist Cardiovascular: S1-S2 regular, no murmur Lungs: CTA bilateral, no rhonchi, no rales, no accessory muscle use Abdominal: Soft, non-tender to palpation Extremities: No cyanosis, clubbing, or pedal edema Neuro: Alert, oriented x 3, gross neurological examination did not reveal any focal deficits. Cranial nerves II to XII grossly intact. A total of 38 minutes of time were spent preparing this complex discharge summary. Patient was discharged on 06/29/2024 at 1258. I have seen and evaluated the patient today. Discussed with the resident and agree with the residents finding and plan as documented in the resident's note. Changes highlighted in blue font. Patient Condition at Discharge: Stable Plan - Discharge Summary Discharge Rx Participant: No New Discharge Prescriptions: Continue Topiramate [Topamax] 50 mg PO HS Rivaroxaban [Xarelto] 20 mg PO HS QUEtiapine FUMARATE [SEROquel] 25 mg PO QID PRN PRN Reason: Anxiety Omeprazole 40 mg PO HS Multivitamins, Thera [Multivitamin (formulary)] 1 tab PO DAILY Albuterol Inhaler [Ventolin Hfa Inhaler] 1 - 2 puff INHALATION Q6HR PRN PRN Reason: sob Desvenlafaxine Succinate [Pristiq] 50 mg PO HS ZOLMitriptan [Zomig] 5 mg PO DAILY PRN PRN Reason: Migraine Headache [place]-3-6-9 1 tab PO DAILY Butalb/Acetaminophen/Caffeine [Fioricet 50-300-40 mg Capsule] 1 - 2 cap PO Q4HR PRN PRN Reason: Migraine Headache Cholecalciferol [Vitamin D3 (25 Mcg = 1000 Iu)] 5,000 unit PO DAILY Cranberry Fruit Extract [Cranberry] 500 mg PO DAILY Melatonin 2 mg PO HS Ondansetron [Zofran] 4 mg PO Q8HR PRN PRN Reason: Nausea Thiamine [Vitamin B-1] 100 mg PO DAILY Vitamin E (Dl,Tocopheryl Acet) [Vitamin E (400 Iu = 180 mg)] 400 unit PO DAILY Zinc 50 mg PO DAILY Discontinued Baclofen [Lioresal] 20 mg PO HS Baclofen [Lioresal] 10 mg PO QAM Discharge Medication List Topiramate [Topamax] 50 mg PO HS 04/28/16 [History] Rivaroxaban [Xarelto] 20 mg PO HS 06/30/16 [History] QUEtiapine FUMARATE [SEROquel] 25 mg PO QID PRN 09/29/16 [History] Omeprazole 40 mg PO HS 03/10/17 [History] Albuterol Inhaler [Ventolin Hfa Inhaler] 1 - 2 puff INHALATION Q6HR PRN 10/19/17 [History] Multivitamins, Thera [Multivitamin (formulary)] 1 tab PO DAILY 10/19/17 [History] Desvenlafaxine Succinate [Pristiq] 50 mg PO HS 06/19/19 [History] ZOLMitriptan [Zomig] 5 mg PO DAILY PRN 06/19/19 [History] Butalb/Acetaminophen/Caffeine [Fioricet 50-300-40 mg Capsule] 1 - 2 cap PO Q4HR PRN 06/20/19 [History] Cholecalciferol [Vitamin D3 (25 Mcg = 1000 Iu)] 5,000 unit PO DAILY 06/20/19 [History] Cranberry Fruit Extract [Cranberry] 500 mg PO DAILY 06/20/19 [History] Melatonin 2 mg PO HS 06/20/19 [History] [place]-3-6-9 1 tab PO DAILY 06/20/19 [History] Ondansetron [Zofran] 4 mg PO Q8HR PRN 06/20/19 [History] Thiamine [Vitamin B-1] 100 mg PO DAILY 06/20/19 [History] Vitamin E (Dl,Tocopheryl Acet) [Vitamin E (400 Iu = 180 mg)] 400 unit PO DAILY 06/20/19 [History] Zinc 50 mg PO DAILY 06/20/19 [History] Follow up Appointment(s)/Referral(s): Dm Morris MD [Primary Care Provider] - 1-2 days Activity/Diet/Wound Care/Special Instructions: Please follow-up with your primary care provider. Discharge Disposition: HOME SELF-CARE
[2024-06-29] MEDS ORDERED: TOPIRAMATE 25 MG TAB PO SCH (21:00)
--- NOTE | 2024-07-01 22:27 | CDI ---
Documentation Clarification Form Date: 07/01/2024 10:15:36 PM From: Keisha Newman Phone: Admit Date: 06/28/2024 10:50:00 PM Patient Name: Sherrie Lira Visit Number: [id number] Discharge Date: 06/29/2024 02:22:00 PM ATTENTION: The Clinical Documentation Specialists (CDI) and [facility] Coding Staff appreciate your assistance in clarifying documentation. Please respond to the clarification below the line at the bottom and electronically sign. The CDI & [facility] Coding staff will review the response and follow-up if needed. Please note: Queries are made part of the Legal Health Record. If you have any questions, please contact the author of this message via ITS. Doctor/Provider: Elian Anaya Your patient has Serum alcoholelevatedat 49. Based on this information and the findings below, is there an additional diagnosis that is clinically appropriate for this patient? Patient history/risk factors: 58yo F, acutemetabolicencephalopathy, NAGMA, hypovolemic,hyponatremia, asthma, seizure disorder, migraines, normocytic anemia,hypoalbuminemia, GERD, inheritedthrombophilia Clinical Indicators: Low Na 122, Low bicarb 15. Brain CTshowsno acuteintracranial hemorrhageor midline shift, no significant change from most recent priorCT Treatment: Obtain urine drug screen, ABG, serum osmolality and urine osmolality, urine sodium and urine creatinine 0.9 normal saline at 110 ml/hr. MonitorBMPq4 hr Is there an additional diagnosis that is clinically appropriate for this patient? [ ] Alcohol abuse with intoxication [ x ] Alcohol use with intoxication [ ] No additional diagnosis/Not clinically significant [ ] Unable to determine [ ] Other, please specify (Template Last Reviewed: August 2022) MTDD
== END 2024-06-29 14:22 | disposition home or self-care (01) | DRG 92 ==
LOC: EC 20:50 → 5NMEDONC 22:50
PROVIDERS: ADMIT Internal Medicine; ATTEND Internal Medicine
DX: G92.8 Other toxic encephalopathy (principal); D68.59 Other primary thrombophilia; E87.20 Acidosis, unspecified; E87.1 Hypo-osmolality and hyponatremia; E88.09 Other disorders of plasma-protein metabolism, not elsewhere classified; G40.909 Epilepsy, unspecified, not intractable, without status epilepticus; F10.920 Alcohol use, unspecified with intoxication, uncomplicated; F32.A Depression, unspecified; J45.909 Unspecified asthma, uncomplicated; D64.9 Anemia, unspecified; T42.75XA Adverse effect of unspecified antiepileptic and sedative-hypnotic drugs, initial encounter; F41.9 Anxiety disorder, unspecified; G43.909 Migraine, unspecified, not intractable, without status migrainosus; K21.9 Gastro-esophageal reflux disease without esophagitis; E86.1 Hypovolemia; Y90.2 Blood alcohol level of 40-59 mg/100 ml; Z79.01 Long term (current) use of anticoagulants; Z98.84 Bariatric surgery status; Z87.11 Personal history of peptic ulcer disease; Z86.718 Personal history of other venous thrombosis and embolism; Z98.1 Arthrodesis status; Z91.81 History of falling; Z87.891 Personal history of nicotine dependence
CPT/HCPCS: 36415; 70450; 71046; 80048; 80053; 80306; 80320; 83605; 83930; 83935; 84484; 85025; 93005; 99285

== ENCOUNTER → 2024-07-15 | Outpatient (CLI) | payer BC ==
[2024-07-15 15:32] LABS: Basophils # (A) 0.14 X 10*3/uL (0.00-0.10); Basophils % (A) 2.6 %; Eosinophils # (A) 0.47 X 10*3/uL (0.04-0.35); Eosinophils % (A) 8.6 %; HCT 42.3 % (37.2-46.3); HGB 13.3 g/dL (12.0-15.0); Lymphocytes # (A) 1.45 X 10*3/uL (0.90-5.00); Lymphocytes % (A) 26.4 %; MCH 28.9 pg (27.0-32.0); MCHC 31.4 g/dL (32.0-37.0); Monocytes # (A) 0.38 X 10*3/uL (0.20-1.00); Monocytes % (A) 6.9 %; NRBC Per 100 WBC 0 X 10*3/uL (0.00-0.01); Neutrophils # (A) 3.04 X 10*3/uL (1.80-7.70); Neutrophils % (A) 55.3 %; Platelet Count 316 X 10*3/uL (140-440); RDW 14.6 % (11.5-14.5); WBC 5.49 X 10*3/uL (4.50-10.00)
[2024-07-15 15:51] LABS: Chol/HDL Ratio 2.21 Ratio; LDL Cholesterol,Calculated 109.7 mg/dL (0.0-131.0); VLDL Calculation 19.34 mg/dL (5.00-40.00)
[2024-07-15 16:30] LABS: ALT 21 U/L (8-44); AST 25 U/L (13-35); Albumin/Globulin Ratio 2.11 Ratio (1.60-3.17); Alkaline Phosphatase 92 U/L (41-126); BUN/Creat Ratio 13.75 Ratio (12.00-20.00); C Reactive Protein <0.30 mg/dL (0.00-0.80); Chloride 108 mmol/L (96-109); Globulin 1.9 g/dL (1.6-3.3); Glucose 83 mg/dL (70-110); Potassium 4.9 mmol/L (3.5-5.5); Sodium 139 mmol/L (135-145); Total Bilirubin <0.2 mg/dL (0.3-1.2); Total Protein 5.9 g/dL (6.2-8.2)
[2024-07-16 10:35] LABS: Zinc, Serum 77 ug/dL (60-130)
== END | disposition home or self-care (01) ==
LOC: LABWHC1 08:15
PROVIDERS: ATTEND Family Medicine
DX: Z00.01 Encounter for general adult medical examination with abnormal findings (principal); Z13.1 Encounter for screening for diabetes mellitus; Z13.220 Encounter for screening for lipoid disorders; Z98.84 Bariatric surgery status
CPT/HCPCS: 36415; 80053; 80061; 82306; 82525; 82607; 83036; 84255; 84425; 84443; 84590; 84630; 85025; 86140

== ENCOUNTER → 2025-01-24 | Outpatient (CLI) | payer BC ==
--- NOTE | 2025-01-24 08:20 | MR ---
EXAMINATION TYPE: MR lumbar spine wo/w con DATE OF EXAM: 01/24/2025 6:51 AM COMPARISON: CT. CLINICAL INDICATION: Female, 59 years old with history of M51.362 degenerative lumbar disc; PHH, Lowe r back pain radiates into buttocks. Hx surgery Feb 2024. TECHNIQUE: Multi planar, multi sequence imaging was performed utilizing: T1-weighted, T2-weighted, a nd turbo inversion recovery imaging of the lumbar spine. IV Contrast: 6 mL Gadobutrol (None, if empty) FINDINGS: Alignment: The lumbar vertebral bodies have preserved heights and alignment. Cord: The conus medullaris and the distal spinal cord appear unremarkable with regards to their signa l intensity and morphology. No abnormal postcontrast enhancement. Bones/Discs: Postsurgical changes at T12-L1 and L2 limits evaluation. Compression deformity at T11 wi th 50% height loss with increased bony edema. Compression deformity of anterior inferior plate of T10 with 25% height loss. No evidence for significant spinal canal stenosis at these levels.. Mild degen eration changes throughout the spine with osteophyte formation and facet joint arthropathy. Intervert ebral disc signal is maintained. No abnormal postcontrast enhancement. T12-L1: Poor visualization due to susceptibility artifact. L1-L2: Poor visualization due to susceptibility artifact. L2-L3: No evidence of significant spinal canal stenosis. Facet joint arthropathy moderate bilateral n eural foraminal stenosis. L3-L4: No evidence of significant spinal canal stenosis. Facet joint arthropathy moderate bilateral n eural foraminal stenosis. L4-L5: No evidence of significant spinal canal stenosis. Facet joint arthropathy moderate to severe b ilateral neural foraminal stenosis. L5-S1: No evidence of significant spinal canal stenosis. Facet joint arthropathy moderate to severe r ight and severe left bilateral neural foraminal stenosis. No significant spinal canal or neural foraminal stenosis in the remainder of the visualized levels. Other findings: None. IMPRESSION: 1. Postsurgical changes at T12-L2 gapping a compression deformity at L1. This limits evaluation at t hese levels. 2. Compression deformity with bony edema of T11 with 50% height loss. No significant spinal canal or neural foraminal stenosis. 3. Compression deformity of the inferior anterior endplate of T10 with 25% height loss. No significa nt spinal canal or neural foraminal stenosis. 4. Multilevel neural foraminal stenosis worse in the lower spine with [id number] right and s evere left L5-S1 and moderate severe bilateral L4-L5 and moderate bilateral L3-L4 stenosis. 5. No abnormal postcontrast enhancement. 6. No evidence for significant spinal canal stenosis. [facility], , 01/24/2025 8:18 AM
== END | disposition home or self-care (01) ==
LOC: RADMRIMAIN 05:53
PROVIDERS: ATTEND Family Medicine
DX: M51.362 Other intervertebral disc degeneration, lumbar region with discogenic back pain and lower extremity pain (principal); M48.55XA Collapsed vertebra, not elsewhere classified, thoracolumbar region, initial encounter for fracture; M48.061 Spinal stenosis, lumbar region without neurogenic claudication; R60.0 Localized edema
CPT/HCPCS: 72158; A9585